=== PATIENT | female | born 1990 | race Hispanic/Latino ===

== ENCOUNTER 2017-06-13 08:54 | Emergency (ER) | payer BC, OTHER ==
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
== END 2017-06-13 10:31 | disposition home or self-care (01) ==
LOC: ERS 08:54
DX: S13.9XXA Sprain of joints and ligaments of unspecified parts of neck, initial encounter (principal); S33.5XXA Sprain of ligaments of lumbar spine, initial encounter; S23.3XXA Sprain of ligaments of thoracic spine, initial encounter; E03.9 Hypothyroidism, unspecified; J45.909 Unspecified asthma, uncomplicated; F41.9 Anxiety disorder, unspecified; F32.9 Major depressive disorder, single episode, unspecified; F17.210 Nicotine dependence, cigarettes, uncomplicated; Z79.899 Other long term (current) drug therapy; V86.99XA Unspecified occupant of other special all-terrain or other off-road motor vehicle injured in nontraffic accident, initial encounter
CPT/HCPCS: 72040; 72070; 72100; 99406

== ENCOUNTER 2018-12-01 11:57 | Emergency (ER) | payer BC, SELFPAY ==
[2018-12-01 13:02] LABS: #Basophils 0.1 thou/uL (0.0-0.2); #Eosinphils 0.7 thou/uL (0.0-0.7); #Monocytes 0.5 thou/uL (0.11-0.59); #Neutrophils 4.1 thou/uL (1.40-6.50); %Basophils 0.7 % (0.0-1.0); %Eosinophils 9.5 % (0.0-10.0); %Lymphocytes 27.2 % (21.0-51.0); %Monocytes 6.8 % (0.0-10.0); %Neutrophils 55.8 % (42.0-75.0); Hemoglobin 12.6 g/dL (12.0-16.0); Mean Corpuscular HGB CONC 31.9 g/dL (32.0-36.0); Mean Corpuscular Hemoglobin 30.5 pg (27.0-31.0); Mean Corpuscular Volume 95.5 fL (78.0-98.0); Mean Platelet Volume 7.4 fL (7.4-10.4); Platelet Count 260 thou/uL (130-400); RBC Distribution Width 12.5 % (11.5-14.5); Red Blood Cell (RBC) Count 4.13 mill/uL (4.20-5.40); White Blood Cell (WBC) Count 7.3 thou/uL (4.8-10.8)
[2018-12-01 13:11] LABS: BHCG - Serum Negative (NEGATIVE); Pregs Control Background? CLEAR/WHITE (CLR/WHITE); Pregs Control Bar Appear? YES (CONTROL BAR)
[2018-12-01 13:21] LABS: Acetaminophen Less than 6.0 mcg/mL (10.0-30.0); Alcohol Less than 10 mg/dL (Less than 10); Magnesium 2.3 mg/dL (1.6-2.6); Salicylate Less than 8.0 mg/dL (15.0-30.0)
[2018-12-01 13:27] LABS: ALT (SGPT) 16 U/L (8-55); AST (SGOT) 21 U/L (5-34); Albumin 3.9 g/dL (3.5-5.0); Alkaline Phosphatase 70 U/L (40-150); Anion Gap 9 mmol/L (10-20); BUN (Urea Nitrogen) 15 mg/dL (7.0-18.7); Bilirubin, Total 0.4 mg/dL (0.2-1.2); CK (CPK) 232 U/L (29-168); Calc. Creatinine Clearance 0 mL/min (70-130); Calcium 9.1 mg/dL (7.8-10.44); Carbon Dioxide 27 mmol/L (22-29); Chloride 110 mmol/L (98-107); Estimated GFR-MDRD Greater than 90; Globulin 2.9 g/dL (2.4-3.5); Glucose 78 mg/dL (70-105); Protein, Total 6.8 g/dL (6.0-8.3); Sodium 142 mmol/L (136-145)
[2018-12-01 13:29] LABS: Bilirubin Negative (Negative); Blood, Urine Negative (Negative); Clarity CLEAR (Clear); Glucose, Urine (Dipstick) Negative (Negative); Leukocyte Negative (Negative); Nitrite Negative (Negative); Protein, Urine (Dipstick) Negative (Neg-Trace); Specific Gravity, Urine 1.017 (1.002-1.036)
[2018-12-01 13:38] LABS: Amphetamine Not Detected (NotDetected); Barbiturates Screen Not Detected (NotDetected); Benzodiazepine Screen Detected (NotDetected); Cocaine Metabolite Screen Not Detected (NotDetected); Medtox Control Line Valid? VALID (VALID); Medtox Reader # READER 1; Methadone Not Detected (NotDetected); Methamphetamine Not Detected (NotDetected); Opiate Screen Detected (NotDetected); Oxycodone Screen Not Detected (NotDetected); Phencyclidine (PCP) Not Detected (NotDetected); THC/Cannabinoid Screen Not Detected (NotDetected); Tricyclic Screen Detected (NotDetected)
[2018-12-01] MEDS ORDERED: Nicotine 21 MG PATCH TOP SCH ×2 (13:45→22:45)
[2018-12-01] MEDS ORDERED: traZODone HCl 50 MG TAB ONE (22:47)
[2018-12-01] MEDS ORDERED: Acetaminophen 500 MG TAB ONE (23:05)
[2018-12-02] MEDS ORDERED: Ziprasidone 20 MG CAP ONE (03:45)
[2018-12-02] MEDS ORDERED: Levothyroxine Sodium 75 MCG TAB PO SCH (09:00)
[2018-12-02] MEDS ORDERED: Bacitracin Zinc 1 Packet ONE ×2 (11:39→15:37)
[2018-12-02] MEDS ORDERED: Nicotine 21 MG PATCH TOP SCH (15:15)
[2018-12-02] MEDS ORDERED: Ibuprofen 200 MG TAB ONE (16:55)
[2018-12-02] MEDS ORDERED: Diazepam 5 MG TAB ONE (16:55)
[2018-12-02] MEDS ORDERED: Meloxicam 15 MG TAB PO SCH (19:00)
[2018-12-02] MEDS ORDERED: Amitriptyline HCl 10 MG TAB PO SCH (19:00)
[2018-12-02] MEDS ORDERED: Acetaminophen 325 MG TAB ONE (19:35)
[2018-12-02] MEDS ORDERED: tiZANidine HCl 4 MG TAB PO SCH (21:00)
== END 2018-12-01 21:07 ==
LOC: ERS 11:57
DX: F32.9 Major depressive disorder, single episode, unspecified (principal); F19.10 Other psychoactive substance abuse, uncomplicated; E03.9 Hypothyroidism, unspecified; F41.9 Anxiety disorder, unspecified; J45.909 Unspecified asthma, uncomplicated; F17.210 Nicotine dependence, cigarettes, uncomplicated; Z79.899 Other long term (current) drug therapy
CPT/HCPCS: 80053; 80306; 80307; 81003; 82550; 83735; 84443; 84703; 85025; 93005; 96360

== ENCOUNTER 2019-02-13 00:38 | Emergency (ER) | payer SELFPAY ==
[2019-02-13 02:20] LABS: #Basophils 0.1 thou/uL (0.0-0.2); #Eosinphils 0.7 thou/uL (0.0-0.7); #Lymphocytes 2.2 thou/uL (1.20-3.40); #Monocytes 0.4 thou/uL (0.11-0.59); #Neutrophils 2.8 thou/uL (1.40-6.50); %Basophils 0.9 % (0.0-1.0); %Eosinophils 10.8 % (0.0-10.0); %Lymphocytes 35.7 % (21.0-51.0); %Monocytes 6.8 % (0.0-10.0); %Neutrophils 45.9 % (42.0-75.0); Mean Corpuscular HGB CONC 32.8 g/dL (32.0-36.0); Mean Corpuscular Hemoglobin 30.1 pg (27.0-31.0); Mean Corpuscular Volume 91.9 fL (78.0-98.0); Mean Platelet Volume 7.5 fL (7.4-10.4); Platelet Count 195 thou/uL (130-400); RBC Distribution Width 12.6 % (11.5-14.5); Red Blood Cell (RBC) Count 3.64 mill/uL (4.20-5.40); White Blood Cell (WBC) Count 6.2 thou/uL (4.8-10.8)
[2019-02-13 02:24] LABS: PTT 26.4 SEC (22.9-36.1); Prothrombin Time 13.7 SEC (12.0-14.7)
[2019-02-13 02:25] LABS: BHCG - Serum Negative (NEGATIVE); Pregs Control Background? CLEAR/WHITE (CLR/WHITE); Pregs Control Bar Appear? YES (CONTROL BAR)
[2019-02-13 02:44] LABS: ALT (SGPT) 40 U/L (8-55); AST (SGOT) 38 U/L (5-34); Albumin 3.5 g/dL (3.5-5.0); Alkaline Phosphatase 79 U/L (40-150); Anion Gap 11 mmol/L (10-20); BUN (Urea Nitrogen) 19 mg/dL (7.0-18.7); Bilirubin, Total 0.2 mg/dL (0.2-1.2); Calc. Creatinine Clearance 0 mL/min (70-130); Calcium 8.8 mg/dL (7.8-10.44); Carbon Dioxide 23 mmol/L (22-29); Chloride 109 mmol/L (98-107); Estimated GFR-MDRD Greater than 90; Glucose 88 mg/dL (70-105); Potassium 4.3 mmol/L (3.5-5.1); Protein, Total 6.5 g/dL (6.0-8.3); Sodium 139 mmol/L (136-145)
[2019-02-13 03:03] LABS: Bilirubin Negative (Negative); Blood, Urine Negative (Negative); Clarity Clear (Clear); Glucose, Urine (Dipstick) Normal (Negative); Leukocyte Negative Leu/uL (Negative); Nitrite Negative (Negative); Protein, Urine (Dipstick) 20 mg/dL (Neg-Trace)
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
[2019-02-13] MEDS ORDERED: ISOVUE-370 76%-LOCM 1 ML ONE (10:12)
== END 2019-02-13 03:19 | disposition home or self-care (01) ==
LOC: ERS 00:38
DX: S90.811A Abrasion, right foot, initial encounter (principal); S00.511A Abrasion of lip, initial encounter; E03.9 Hypothyroidism, unspecified; J45.909 Unspecified asthma, uncomplicated; F41.9 Anxiety disorder, unspecified; F31.9 Bipolar disorder, unspecified; F17.210 Nicotine dependence, cigarettes, uncomplicated; Z79.899 Other long term (current) drug therapy; V49.9XXA Car occupant (driver) (passenger) injured in unspecified traffic accident, initial encounter
CPT/HCPCS: 36415; 70450; 71260; 72125; 74177; 80053; 81003; 84703; 85025; 85610; 85730; Q9966

== ENCOUNTER 2019-02-18 13:32 | Inpatient (IN) | payer SELFPAY, OTHER ==
[2019-02-18 14:05] LABS: #Basophils 0.1 thou/uL (0.0-0.2); #Eosinphils 0.6 thou/uL (0.0-0.7); #Lymphocytes 2.2 thou/uL (1.20-3.40); #Monocytes 0.6 thou/uL (0.11-0.59); #Neutrophils 3.7 thou/uL (1.40-6.50); %Basophils 0.8 % (0.0-1.0); %Eosinophils 8.4 % (0.0-10.0); %Lymphocytes 30.5 % (21.0-51.0); %Neutrophils 51.3 % (42.0-75.0); Mean Corpuscular HGB CONC 32.7 g/dL (32.0-36.0); Mean Corpuscular Hemoglobin 30.3 pg (27.0-31.0); Mean Corpuscular Volume 92.7 fL (78.0-98.0); Mean Platelet Volume 6.9 fL (7.4-10.4); Platelet Count 208 thou/uL (130-400); RBC Distribution Width 12.5 % (11.5-14.5); Red Blood Cell (RBC) Count 3.64 mill/uL (4.20-5.40); White Blood Cell (WBC) Count 7.2 thou/uL (4.8-10.8)
--- NOTE | 2019-02-18 14:11 | RAD ---
Portable chest: HISTORY: Mental status change. Substance abuse COMPARISON: none FINDINGS: Lung arrieta are clear. Heart and mediastinum appear unremarkable. Vascularity is normal. Visualized osseous structures unremarkable. IMPRESSION: No acute finding
[2019-02-18 14:25] LABS: ALT (SGPT) 14 U/L (8-55); AST (SGOT) 21 U/L (5-34); Albumin 3.7 g/dL (3.5-5.0); Alcohol Less than 10 mg/dL (Less than 10); Alkaline Phosphatase 68 U/L (40-150); Anion Gap 11 mmol/L (10-20); BUN (Urea Nitrogen) 16 mg/dL (7.0-18.7); Bilirubin, Total 0.3 mg/dL (0.2-1.2); Calc. Creatinine Clearance 0 mL/min (70-130); Calcium 8.6 mg/dL (7.8-10.44); Carbon Dioxide 23 mmol/L (22-29); Chloride 109 mmol/L (98-107); Estimated GFR-MDRD Greater than 90; Globulin 2.9 g/dL (2.4-3.5); Glucose 78 mg/dL (70-105); Potassium 3.9 mmol/L (3.5-5.1); Protein, Total 6.6 g/dL (6.0-8.3); Salicylate Less than 8.0 mg/dL (15.0-30.0); Sodium 139 mmol/L (136-145)
[2019-02-18 14:40] LABS: Bacteria/HPF None Seen HPF (None Seen); Bilirubin 1+ (Negative); Blood, Urine Negative (Negative); Clarity Clear (Clear); Glucose, Urine (Dipstick) Normal (Negative); Leukocyte 250 Leu/uL (Negative); Nitrite Negative (Negative); Protein, Urine (Dipstick) 100 mg/dL (Neg-Trace); Squamous Epithelial 0-3 HPF (0-3); Urobilinogen 6 mg/dL (Less than 2)
[2019-02-18 14:49] LABS: Amphetamine Not Detected (NotDetected); Barbiturates Screen Detected (NotDetected); Benzodiazepine Screen Detected (NotDetected); Cocaine Metabolite Screen Not Detected (NotDetected); Medtox Control Line Valid? VALID (VALID); Medtox Reader # READER 4; Methadone Not Detected (NotDetected); Methamphetamine Not Detected (NotDetected); Opiate Screen Detected (NotDetected); Oxycodone Screen Detected (NotDetected); Phencyclidine (PCP) Not Detected (NotDetected); THC/Cannabinoid Screen Not Detected (NotDetected); Tricyclic Screen Detected (NotDetected)
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
[2019-02-18 16:55] LABS: Pregnancy Test - Urine (BHCG) Negative (Negative); Pregu Control Background? CLEAR/WHITE (CLR/WHITE); Pregu Control Bar Appear? YES (CONTROL BAR); Specific Gravity 1.049 (1.002-1.036)
[2019-02-18] MEDS ORDERED: Ondansetron PF 4 MG/2 ML Vial IVP PRN (19:40)
[2019-02-18] MEDS ORDERED: Naloxone HCl 0.4 mg/ml Vial IV PRN (19:40)
[2019-02-18] MEDS ORDERED: Ondansetron ODT 4 MG TAB SL PRN (19:40)
[2019-02-18] MEDS ORDERED: Sodium Chloride 0.9% 1,000 ML IV SCH (19:40)
[2019-02-18] MEDS ORDERED: traZODone HCl 50 MG TAB PO PRN (19:59)
[2019-02-18] MEDS ORDERED: Nicotine 14 MG PATCH TD SCH (21:00)
[2019-02-18 21:56] VITALS: BMI 39.4
[2019-02-18] MEDS ORDERED: Nicotine 21 MG PATCH TD SCH (23:59)
[2019-02-19] MEDS ORDERED: Acetaminophen 325 MG TAB PO PRN (05:04)
[2019-02-19 05:41] LABS: #Basophils 0.1 thou/uL (0.0-0.2); #Eosinphils 0.6 thou/uL (0.0-0.7); #Lymphocytes 2.5 thou/uL (1.20-3.40); #Monocytes 0.4 thou/uL (0.11-0.59); %Basophils 1.3 % (0.0-1.0); %Eosinophils 9.8 % (0.0-10.0); %Lymphocytes 37.2 % (21.0-51.0); %Monocytes 6.3 % (0.0-10.0); %Neutrophils 45.4 % (42.0-75.0); Hemoglobin 11.3 g/dL (12.0-16.0); Mean Corpuscular HGB CONC 32.8 g/dL (32.0-36.0); Mean Corpuscular Volume 94.4 fL (78.0-98.0); Mean Platelet Volume 7.3 fL (7.4-10.4); Platelet Count 227 thou/uL (130-400); RBC Distribution Width 12.7 % (11.5-14.5); Red Blood Cell (RBC) Count 3.63 mill/uL (4.20-5.40); White Blood Cell (WBC) Count 6.6 thou/uL (4.8-10.8)
[2019-02-19 06:06] LABS: ALT (SGPT) 13 U/L (8-55); AST (SGOT) 19 U/L (5-34); Albumin 3.4 g/dL (3.5-5.0); Alkaline Phosphatase 63 U/L (40-150); Anion Gap 10 mmol/L (10-20); BUN (Urea Nitrogen) 14 mg/dL (7.0-18.7); Bilirubin, Total 0.3 mg/dL (0.2-1.2); Calc. Creatinine Clearance 186 mL/min (70-130); Calcium 8.6 mg/dL (7.8-10.44); Carbon Dioxide 23 mmol/L (22-29); Chloride 110 mmol/L (98-107); Estimated GFR-MDRD Greater than 90; Globulin 2.9 g/dL (2.4-3.5); Glucose 97 mg/dL (70-105); Potassium 3.9 mmol/L (3.5-5.1); Protein, Total 6.3 g/dL (6.0-8.3); Sodium 139 mmol/L (136-145)
[2019-02-19] MEDS ORDERED: Naloxone HCl 0.4 mg/ml Vial IV PRN (06:38)
--- NOTE | 2019-02-19 06:40 | PDOC.FM ---
- Subjective Subjective: pt resting in bed, not amenable to questioning. tolerating PO. requesting benzos and norco. threatening to leave ama. - Objective Vital Signs & Weight: Vital Signs (12 hours) Temp Pulse Ox 02/19/19 03:19 98.1 F 02/19/19 00:56 98 02/18/19 19:35 99.1 F Weight Weight 97.778 kg Most Recent Monitor Data Heart Rate from ECG 86 NIBP 102/57 NIBP BP-Mean 72 Respiration from ECG 29 SpO2 97 I&O: 02/17/19 02/18/19 02/19/19 06:59 06:59 06:59 Intake Total 610 Balance 610 Result Diagrams: 02/19/19 05:19 02/19/19 05:19 Phys Exam - Physical Examination Constitutional: NAD HEENT: moist MMs Neck: no JVD Respiratory: clear to auscultation bilateral Cardiovascular: RRR, no significant murmur Gastrointestinal: no distention Musculoskeletal: pulses present Neurological: moves all 4 limbs Psychiatric: normal affect Skin: no rash Dx/Plan (1) Acute and chronic respiratory failure with hypoxia Code(s): J96.21 - ACUTE AND CHRONIC RESPIRATORY FAILURE WITH HYPOXIA Status: Acute (2) Asthma Code(s): J45.909 - UNSPECIFIED ASTHMA, UNCOMPLICATED Status: Acute Qualifiers: Asthma severity: mild (3) Drug overdose, multiple drugs Code(s): T50.901A - POISONING BY UNSP DRUG/MEDS/BIOL SUBST, ACCIDENTAL, INIT Status: Acute Qualifiers: Injury intent: undetermined intent (4) Hypothyroidism Code(s): E03.9 - HYPOTHYROIDISM, UNSPECIFIED Status: Acute (5) Suicidal behavior Code(s): R46.89 - OTHER SYMPTOMS AND SIGNS INVOLVING APPEARANCE AND BEHAVIOR Status: Acute (6) Tobacco abuse Code(s): Z72.0 - TOBACCO USE Status: Acute - Plan Plan: Multi-drug Overdose -UDS positive for: oxycodone, opiates, barbituates, TCA, and benzodiazepine -Poison control consulted: agreed with current workup; recommended 8-12 hr observation or until pt symptoms resolve -Questionable suicidal intent - pt denies this although becomes tearful when questioned about it -EKG with QRS < 100 -Sitter for pt w/ questionable SI, [facility] consulted -Repeat narcan if overdose sx worsen Acute hypoxic respiratory failure - resolved - Noted upon EMS arrival to pt's home -Improved following administration of narcan Hypothyroid -Continue home Levothyroxine 75mcg Asthma -Continue home inhalers Tobacco abuse -Daily smoker -Educate on cessation -Nicotine patch ordered Condition: Stable VTE: SCD Code Status: Full Dispo: pending [facility] eval Addendum - Attending - Attending Attestation Date/Time: 02/20/19 6703 I personally evaluated the patient and discussed the management with Dr. Hughes on 02/19/2019 I agree with the History, Examination, Assessment and Plan documented above with any addition or exceptions noted below - Patient requesting pain meds ; wants to go home. Afebrile VSS. A/P: 1) Multi-drug overdose- medically stable; plan for [facility] consult. Does not appear to be suicide attempt. Plan to d/c home of cleared by [facility]. Encouraged to pursue rehab
[2019-02-19] MEDS ORDERED: Ketorolac Tromethamine 30 MG/ML VIAL IVP PRN (09:17)
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
[2019-02-19 15:23] VITALS: TEMP 97.7
[2019-02-19] MEDS ORDERED: Nicotine 21 MG PATCH TD SCH (21:00)
--- NOTE | 2019-02-20 09:02 | DIS ---
DATE OF ADMISSION: 02/18/2019 DATE OF DISCHARGE: 02/19/2019 ADMITTING ATTENDING: Dr. Aung Perez. DISCHARGE ATTENDING: Dr. Emmy Duncan. RESIDENT: Tyler Hughes DO. CONSULTS: [facility]. PRIMARY DIAGNOSIS: Drug overdose. SECONDARY DIAGNOSES: 1. Chronic pain syndrome. 2. Hypothyroidism. 3. Acute hypoxic respiratory failure. 4. Asthma. 5. Tobacco abuse. DISCHARGE MEDICATIONS: 1. Sertraline 100 mg nightly. 2. Amitriptyline 25 mg p.o. daily. 3. Risperidone 2 mg p.o. daily. 4. Levothyroxine 75 mcg p.o. daily. DISCONTINUED MEDICATIONS: 1. Alprazolam 2 mg p.o. b.i.d. 2. Tizanidine 8 mg p.o. b.i.d. 3. Omeprazole 10 mg p.o. daily. 4. Hydrocodone one tablet p.o. q.6. HISTORY OF PRESENT ILLNESS/HOSPITAL COURSE: Ms. Quach is a 28-year-old female who had initially presented to [facility] ER with drug overdose. At that time , we were unable to obtain accurate history from patient. At that time, we think she had taken some pills and she was trying to get home. At that time she denied any suicidal ideation. The patient's UDS was positive for benzos, tricyclics, and opioids. She was given narcan in the emergency department and Poison Control was contacted from the emergency department and it was determined that she would be observed in IMCU for an additional 8 to 12 hours to confirm respiratory support. Upon evaluation by the primary team in the ER, she was noted to be stable on room air. Rest of her vital signs were stable and remained stable throughout her hospital stay. The patient complained of pain and requested pain medicine throughout her hospital stay. specifically pain medications in the opioid form and in a benzodiazapine form for anxiety medications were denied to her at this time. [facility] was consulted to evaluate the patient for suicidal ideation of which they found that she was not at risk for, deemed stable for discharge home with followup outpatient [facility], Dr. Escobar in town here. DISCHARGE INSTRUCTIONS: 1. Location: Home. 2. Diet: Regular. 3. Activity: As tolerated. 4. Follow up with PCP and Dr. Escobar for further evaluation and treatment of prescription drug addiction. Job ID: [id number] MTDD
== END 2019-02-19 17:32 | disposition home or self-care (01) | DRG 917 ==
LOC: ERS 13:32 → ERHOLD 15:24 → EEVIPCON 15:24 → IMCU/EMU 19:40
PROVIDERS: ADMIT Emergency Medicine; ATTEND Emergency Medicine
DX: T40.2X1A Poisoning by other opioids, accidental (unintentional), initial encounter (principal); J96.21 Acute and chronic respiratory failure with hypoxia; T42.4X1A Poisoning by benzodiazepines, accidental (unintentional), initial encounter; J45.909 Unspecified asthma, uncomplicated; E03.9 Hypothyroidism, unspecified; F17.200 Nicotine dependence, unspecified, uncomplicated; F41.9 Anxiety disorder, unspecified; Z79.899 Other long term (current) drug therapy
CPT/HCPCS: 36415; 51701; 71045; 80053; 80306; 80307; 81003; 81015; 81025; 84443; 84484; 85025; 93005; A4353; J1885

== ENCOUNTER 2020-05-07 14:13 | Observation (INO) | payer OTHER, SELFPAY ==
[2020-05-07 15:07] LABS: #Basophils 0.1 thou/uL (0.0-0.2); #Eosinphils 0.6 thou/uL (0.0-0.7); #Lymphocytes 1.2 thou/uL (1.20-3.40); #Monocytes 0.4 thou/uL (0.11-0.59); #Neutrophils 3.6 thou/uL (1.40-6.50); %Basophils 1.2 % (0.0-1.0); %Eosinophils 10.1 % (0.0-10.0); %Lymphocytes 20.2 % (21.0-51.0); %Monocytes 6.3 % (0.0-10.0); %Neutrophils 62.2 % (42.0-75.0); Mean Corpuscular HGB CONC 31.1 g/dL (32.0-36.0); Mean Corpuscular Hemoglobin 24.1 pg (27.0-31.0); Mean Corpuscular Volume 77.4 fL (78.0-98.0); Mean Platelet Volume 7.5 fL (7.4-10.4); Platelet Count 401 thou/uL (130-400); RBC Distribution Width 17.3 % (11.5-14.5); Red Blood Cell (RBC) Count 3.31 mill/uL (4.20-5.40); White Blood Cell (WBC) Count 5.8 thou/uL (4.8-10.8)
[2020-05-07 15:10] LABS: BHCG - Serum Negative (NEGATIVE); Pregs Control Bar Appear? YES (CONTROL BAR)
[2020-05-07 15:11] LABS: Pregs Control Background? CLEAR/WHITE (CLR/WHITE)
[2020-05-07] MEDS ORDERED: Iopamidol-370 76% 500 ML 1 ML ONE (15:11)
[2020-05-07 15:34] LABS: ALT (SGPT) 17 U/L (8-55); AST (SGOT) 18 U/L (5-34); Albumin 3.7 g/dL (3.5-5.0); Alkaline Phosphatase 51 U/L (40-110); Anion Gap 10 mmol/L (10-20); BUN (Urea Nitrogen) 15 mg/dL (7.0-18.7); Bilirubin, Total 0.2 mg/dL (0.2-1.2); Calc. Creatinine Clearance 0 mL/min (70-130); Calcium 8.2 mg/dL (7.8-10.44); Carbon Dioxide 24 mmol/L (22-29); Chloride 109 mmol/L (98-107); Estimated GFR-MDRD Greater than 90; Globulin 2.6 g/dL (2.4-3.5); Glucose 112 mg/dL (70-105); Lipase 53 U/L (8-78); Potassium 4.3 mmol/L (3.5-5.1); Protein, Total 6.3 g/dL (6.0-8.3); Sodium 139 mmol/L (136-145)
[2020-05-07 15:56] LABS: Bacteria/HPF 3+ HPF (None Seen); Bilirubin Negative (Negative); Blood, Urine Negative (Negative); Clarity Turbid (Clear); Glucose, Urine (Dipstick) Normal (Negative); Ketone, Urine Trace mg/dL (Negative); Leukocyte 25 Leu/uL (Negative); Nitrite 2+ (Negative); Protein, Urine (Dipstick) 50 mg/dL (Neg-Trace); RBC/HPF None Seen HPF (0-3); Specific Gravity, Urine 1.027 (1.002-1.036); Squamous Epithelial None Seen HPF (0-3); Urobilinogen Normal mg/dL (Less than 2)
[2020-05-07] MEDS ORDERED: Ondansetron PF 4 MG/2 ML Vial ONE (17:16)
[2020-05-07] MEDS ORDERED: Morphine 4 MG/ML VIAL ONE (17:16)
--- NOTE | 2020-05-07 17:24 | CT ---
CT OF THE ABDOMEN AND PELVIS WITH IV CONTRAST INDICATION: 29-year-old female with abdominal pain COMPARISON: CT the chest, abdomen and pelvis dated February 13, 2019 FINDINGS: ABDOMEN: Lung bases: Clear Liver: Mild fatty liver Gallbladder: Normal appearing. Pancreas: Normal. Adrenal glands: Normal. Spleen: Normal. Kidneys and ureters: Normal. No hydronephrosis. Vasculature: Normal. Lymph nodes:No lymphadenopathy. Free fluid in abdomen:No free fluid is evident. PELVIS: Small and large bowel: The unopacified large and small bowel are largely decompressed. No definite ac grayling abnormality is evident. There is postsurgical change of a prior gastroplasty. Appendix:Normal Bladder: Normal. Rectal and perirectal soft tissues:Normal. Reproductive structures: Normal. Free fluid in pelvis: No free fluid is evident. Lymphadenopathy pelvis: No lymphadenopathy is evident. Osseous structures: No acute osseous abnormality. No destructive osteolytic or osteoblastic lesion i s identified. There is scattered degenerative and osteoarthritic changes. Soft tissues:Normal. IMPRESSION: 1. No acute abnormality.
[2020-05-07 17:35] LABS: Pregnancy Test - Urine (BHCG) Negative (Negative); Pregu Control Background? CLEAR/WHITE (CLR/WHITE); Pregu Control Bar Appear? YES (CONTROL BAR); Specific Gravity 1.025 (1.002-1.036)
[2020-05-07] MEDS ORDERED: cefTRIAXone\\ROCEPHIN 1 GM VIAL ONE (18:59)
[2020-05-07] MEDS ORDERED: Calcium Carbonate 500 MG ChewTAB PO PRN (19:17)
[2020-05-07] MEDS ORDERED: Ondansetron ODT 4 MG TAB PO PRN (19:17)
[2020-05-07] MEDS ORDERED: Ondansetron PF 4 MG/2 ML Vial IVP PRN (19:17)
[2020-05-07] MEDS ORDERED: Acetaminophen 325 MG TAB PO PRN (19:17)
[2020-05-07] MEDS ORDERED: Bisacodyl 10 MG SUPP PR PRN (19:17)
[2020-05-07] MEDS ORDERED: Zolpidem Tartrate 5 MG TAB PO PRN (19:17)
[2020-05-07] MEDS ORDERED: Senokot S 8.6-50 MG TAB PO PRN (19:17)
[2020-05-07] MEDS ORDERED: IRON SUCROSE COMPLEX 100 MG/5 ML SLOW IVP SCH (19:17)
[2020-05-07] MEDS ORDERED: Loperamide HCl 2 MG CAP PO PRN (19:17)
[2020-05-07] MEDS ORDERED: Guaifenesin DM 100-10/5 ML UDCUP PO PRN (19:17)
[2020-05-07] MEDS ORDERED: Iron, Sodium Ferric Gluconate 125 MG in Sodium Chloride 0.9% 100 ML IVPB SCH (19:30)
[2020-05-07 20:01] LABS: Iron 14 ug/dL (50-170); Iron Binding Capacity, Total 505 mcg/dL (265-497)
--- NOTE | 2020-05-07 20:08 | HP ---
PRIMARY CARE PHYSICIAN: [facility]. REASON FOR ADMISSION: Generalized weakness, nausea, vomiting, diarrhea, and UTI. HISTORY OF PRESENT ILLNESS: A 29-year-old female who came to emergency room for nausea, vomiting, diarrhea, and abdominal pain, this is going on for last 4 days. The patient also had very foul smelling urine. She does not have any dysuria or hematuria. She does not have any vomiting of blood. She does not have any melena or hematochezia. States she has liquidy diarrhea without any pus or blood. She was feeling chills, but no fever. She was feeling dizzy and lightheaded. She denies any menorrhagia. She denies any lower abdominal pain. In the emergency room, the patient was found with hemoglobin 8.0, which is microcytic. Her urinalysis consistent with UTI. The patient has received Rocephin in the emergency room, and the patient also given IV fluid and Zofran and morphine. She denies any COVID-19 exposure. She does not have any loss of taste or smell sensation. PAST MEDICAL HISTORY: Chronic anemia, chronic low back pain, and obesity. PAST PSYCHIATRIC HISTORY: Anxiety, depression, and bipolar disorder. PAST SURGICAL HISTORY: Gastric sleeve, x3. SOCIAL HISTORY: The patient lives at home. She smokes about half pack per day. No alcohol abuse. She denies any other illicit drug abuse. FAMILY HISTORY: No strong family history of premature coronary artery disease, stroke, or cancer. REVIEW OF SYSTEMS: All review of systems reviewed and negative except as mentioned in HPI. PHYSICAL EXAMINATION: VITAL SIGNS: Currently, blood pressure 122/69, pulse 72, respiratory rate 17, temperature 98.8, and saturation 100% on room air. Weight 81 kg. GENERAL: The patient is currently alert, awake, no acute distress. HEENT: Head; normocephalic, atraumatic. NECK: Supple. No JVD. No meningeal signs of irritation. LUNGS: Clear to auscultation without any rhonchi or rales. CARDIAC: S1 and S2 regular, no murmur. No gallop. No rub. ABDOMEN: Soft, bowel sounds present, nontender, nondistended. No organomegaly. No mass. EXTREMITIES: No edema. Good distal pulsation. SKIN: No skin rash. HEMATOLOGICAL SYSTEM: No lymphadenopathy. NEUROLOGIC: Nonfocal examination. SIGNIFICANT LABORATORY DATA: CBC; WBC 5.8, hemoglobin 8.0, platelets 401, MCV 77. BMP; sodium 139, potassium 4.3, chloride 109, BUN 15, creatinine 0.72, calcium 8.2. LFT normal. test negative. TSH 0.96. Urinalysis consistent with UTI. CT abdomen and pelvis completely normal. ASSESSMENT AND PLAN: 1. Iron deficiency anemia, symptomatic. The patient's hemoglobin is 8.0. We will check iron study and stool for guaiac is already negative. We will give her IV iron today and tomorrow. 2. Urinary tract infection. We will give her Rocephin 1 g p.o. 24 hour and send her on Cipro p.o. or Macrobid depending upon culture results. 3. Anxiety and depression. Her home medication will be reconsulted. 4. Gastroenteritis, viral. We will rule out COVID-19. We will continue with overnight IV fluids. 5. Deep venous thrombosis prophylaxis, SCD boots. 6. Gastrointestinal prophylaxis. Protonix 40 mg p.o. daily. CODE STATUS: The patient is full code. DISPOSITION PLAN: Based on clinical course. Plan of care discussed with the patient in detail. Job ID: [id number]
[2020-05-07 22:03] VITALS: BMI 34.2
[2020-05-07] MEDS: cefTRIAXone\\ROCEPHIN 1 GM in Sodium Chloride 0.9% 100 ML IVPB SCH (22:05)
[2020-05-07] MEDS: HYDROcodone/Acetaminophen 5/325 mg Tablet PO PRN (22:13)
[2020-05-07] MEDS: Sodium Chloride 0.9% 1,000 ML IV SCH (22:13)
[2020-05-07] MEDS: Famotidine 20 MG TAB PO SCH (22:13)
[2020-05-07] MEDS ORDERED: risperiDONE 1 MG TAB PO SCH (22:15)
[2020-05-07] MEDS ORDERED: Amitriptyline HCl 25 MG TAB PO SCH (22:15)
[2020-05-08] MEDS: Levothyroxine Sodium 75 MCG TAB PO SCH (05:20)
[2020-05-08 06:05] LABS: #Basophils 0.1 thou/uL (0.0-0.2); #Eosinphils 0.6 thou/uL (0.0-0.7); #Lymphocytes 1.1 thou/uL (1.20-3.40); #Monocytes 0.2 thou/uL (0.11-0.59); #Neutrophils 3.6 thou/uL (1.40-6.50); %Basophils 1.1 % (0.0-1.0); %Eosinophils 10.7 % (0.0-10.0); %Lymphocytes 19.2 % (21.0-51.0); %Monocytes 3.3 % (0.0-10.0); %Neutrophils 65.7 % (42.0-75.0); Hemoglobin 8.1 g/dL (12.0-16.0); Mean Corpuscular HGB CONC 31.2 g/dL (32.0-36.0); Mean Corpuscular Hemoglobin 24.5 pg (27.0-31.0); Mean Corpuscular Volume 78.6 fL (78.0-98.0); Mean Platelet Volume 7.3 fL (7.4-10.4); Platelet Count 364 thou/uL (130-400); White Blood Cell (WBC) Count 5.5 thou/uL (4.8-10.8)
[2020-05-08 06:27] LABS: Anion Gap 9 mmol/L (10-20); BUN (Urea Nitrogen) 13 mg/dL (7.0-18.7); Calc. Creatinine Clearance 187 mL/min (70-130); Calcium 7.7 mg/dL (7.8-10.44); Carbon Dioxide 23 mmol/L (22-29); Chloride 115 mmol/L (98-107); Estimated GFR-MDRD Greater than 90; Glucose 78 mg/dL (70-105); Potassium 3.6 mmol/L (3.5-5.1); Sodium 143 mmol/L (136-145)
[2020-05-08] MEDS: HYDROcodone/Acetaminophen 5/325 mg Tablet PO PRN ×2 (08:00→17:28)
[2020-05-08] MEDS ORDERED: Iron, Sodium Ferric Gluconate 250 MG in Sodium Chloride 0.9% 100 ML IVPB SCH (08:00)
[2020-05-08] MEDS: Famotidine 20 MG TAB PO SCH (08:01)
[2020-05-08] MEDS ORDERED: Amitriptyline HCl 25 MG TAB PO SCH ×2 (09:00→21:00)
[2020-05-08] MEDS ORDERED: risperiDONE 1 MG TAB PO SCH ×2 (09:00→21:00)
[2020-05-08 11:02] LABS: SARS-CoV-2 MS2 Positive; SARS-CoV-2 N Gene Negative; SARS-CoV-2 S Gene Negative; SARS-CoV-2 by NAA Not Detected (NotDetected); SARS-CoV-2 orf1ab Negative
[2020-05-08] MEDS ORDERED: diphenhydrAMINE 50 MG/ML VIAL ONE (11:37)
[2020-05-08] MEDS ORDERED: diphenhydrAMINE 50 MG/ML VIAL IVP SCH (11:45)
[2020-05-08] MEDS ORDERED: methylPREDNISolone Sod Succ 40 MG VIAL IVP SCH (11:45)
[2020-05-08] MEDS ORDERED: Morphine 2 MG/ML VIAL SLOW IVP SCH (12:00)
[2020-05-08] MEDS: Sodium Chloride 0.9% 1,000 ML IV SCH (12:21)
--- NOTE | 2020-05-08 12:55 | PDOC.HOSPP ---
- Subjective Encounter Date: 05/08/20 Encounter Time: 08:15 Subjective: Patient seen and examined. No new complaints. No overnight events pt developed allergic reaction to venofer, had nausea, vomiting and abdominal pain and hives - Objective Vital Signs & Weight: Vital Signs (12 hours) Temp Pulse Resp BP BP Pulse Ox 05/08/20 12:11 97.4 F L 99 22 H 122/78 96 05/08/20 07:34 98.2 F 101 H 20 137/88 98 05/08/20 01:00 98.2 F 101 H 18 125/78 100 Weight Weight 187 lb I&O: 05/07/20 05/08/20 05/09/20 06:59 06:59 06:59 Intake Total 100 Balance 100 Result Diagrams: 05/08/20 05:26 05/08/20 05:26 Hospitalist ROS - Review of Systems ENT: denies: ear pain, ear discharge, nose pain, nose discharge, nose congestion, mouth pain, mouth swelling, throat pain, throat swelling, other Respiratory: denies: cough, dry, shortness of breath, hemoptysis, SOB with excertion, pleuritic pain, sputum, wheezing, other Cardiovascular: denies: chest pain, palpitations, orthopnea, paroxysmal noc. dyspnea, edema, light headedness, other Gastrointestinal: denies: nausea, vomiting, abdominal pain, diarrhea, constipation, melena, hematochezia, other Genitourinary: denies: dysuria, frequency, incontinence, hematuria, retention, other Musculoskeletal: denies: neck pain, shoulder pain, arm pain, back pain, hand p ain, leg pain, foot pain, other - Medication Medications: Active Medications Generic Name Dose Route Start Last Admin Trade Name Freq PRN Reason Stop Dose Admin Hydrocodone Bitart/Acetaminophen 1 tab 05/07/20 19:17 05/08/20 08:00 Hydrocodone/Acetaminophen 5/325 Mg Tablet PO 1 tab Q4H PRN Administration Moderate Pain (4-6) Diphenhydramine HCl 25 mg 05/08/20 11:45 05/08/20 11:47 Diphenhydramine 50 Mg/Ml Vial IVP 05/08/20 14:00 Not Given NOW MARGUERITE Ceftriaxone Sodium 1 gm/ 100 mls @ 200 mls/hr 05/07/20 20:00 05/07/20 22:05 Sodium Chloride IVPB Not Given Q24HR [facility] Sodium Chloride 1,000 mls @ 75 mls/hr 05/07/20 19:17 05/08/20 12:21 Normal Saline 0.9% IV 1,000 mls .[id number] MARGUERITE Administration Levothyroxine Sodium 75 mcg 05/08/20 06:00 05/08/20 05:20 Levothyroxine Sodium 75 Mcg Tab PO 75 mcg 0600 MARGUERITE Administration Methylprednisolone Sodium Succinate 40 mg 05/08/20 11:45 05/08/20 11:44 Methylprednisolone Sod Succ 40 Mg Vial IVP 05/08/20 14:00 40 mg NOW MARGUERITE Administration Morphine Sulfate 2 mg 05/08/20 12:00 05/08/20 12:01 Morphine 2 Mg/Ml Vial SLOW IVP 05/08/20 14:00 2 mg NOW MARGUERITE Administration Ondansetron HCl 4 mg 05/07/20 19:17 05/08/20 11:44 Ondansetron Pf 4 Mg/2 Ml Vial IVP 4 mg Q6H PRN Administration Nausea/Vomiting Sertraline HCl 100 mg 05/07/20 21:00 05/07/20 22:49 Sertraline Hcl 100 Mg Tab PO 100 mg HS MARGUERITE Administration - Exam General Appearance: NAD, awake alert Eye: PERRL, anicteric sclera ENT: normocephalic atraumatic, no oropharyngeal lesions Neck: supple, symmetric, no JVD, no thyromegaly Heart: RRR, no murmur, no gallops, no rubs, normal peripheral pulses Respiratory: CTAB, no wheezes, no rales, no ronchi, normal chest expansion, no tachypnea, normal percussion, rales, rhonchi, tachypneic, wheezes Gastrointestinal: soft, non-tender, non-distended, normal bowel sounds, no p alpable masses Extremities: no cyanosis, no clubbing Skin: normal turgor, no lesions Neurological: no focal deficits Musculoskeletal: normal tone, normal strength, no muscle wasting Psychiatric: normal affect, normal behavior, A&O x 3 Hosp A/P (1) Allergic reaction caused by a drug Code(s): T78.40XA - ALLERGY, UNSPECIFIED, INITIAL ENCOUNTER Status: Acute (2) Iron deficiency anemia Code(s): D50.9 - IRON DEFICIENCY ANEMIA, UNSPECIFIED Status: Acute Qualifiers: Iron deficiency anemia type: inadequate dietary iron intake Qualified Code(s): D50.8 - Other iron deficiency anemias (3) Obesity (BMI 30-39.9) Code(s): E66.9 - OBESITY, UNSPECIFIED Status: Chronic (4) Asthma Code(s): J45.909 - UNSPECIFIED ASTHMA, UNCOMPLICATED Status: Chronic Qualifiers: Asthma severity: mild (5) Hypothyroidism Code(s): E03.9 - HYPOTHYROIDISM, UNSPECIFIED Status: Chronic (6) Tobacco abuse Code(s): Z72.0 - TOBACCO USE Status: Chronic - Plan old records reviewed/req planned for discharge but she developed allergic reaction to venofer, given solumedrol, benadryl, zofran and morphin, will monitor based on how she feels will decide if stable for dc today or not
[2020-05-08] MEDS: methylPREDNISolone Sod Succ 40 MG VIAL IVP SCH (17:29)
[2020-05-08] MEDS: Famotidine/PF 20 mg/2ml Vial SLOW IVP SCH (20:24)
[2020-05-08] MEDS: cefTRIAXone\\ROCEPHIN 1 GM in Sodium Chloride 0.9% 100 ML IVPB SCH (20:25)
[2020-05-08] MEDS ORDERED: ALPRAZolam 1 MG TAB PO SCH (21:00)
[2020-05-09] MEDS: Sodium Chloride 0.9% 1,000 ML IV SCH (00:55)
[2020-05-09] MEDS: methylPREDNISolone Sod Succ 40 MG VIAL IVP SCH ×3 (00:55→12:09)
[2020-05-09] MEDS: Levothyroxine Sodium 75 MCG TAB PO SCH (05:03)
[2020-05-09] MEDS: Famotidine/PF 20 mg/2ml Vial SLOW IVP SCH (08:12)
[2020-05-09] MEDS: HYDROcodone/Acetaminophen 5/325 mg Tablet PO PRN ×2 (08:20→12:08)
--- NOTE | 2020-05-09 10:18 | PDOC.HOSPP ---
- Subjective Encounter Date: 05/09/20 Encounter Time: 07:50 Subjective: Patient seen and examined. No new complaints. No overnight events - Objective Vital Signs & Weight: Vital Signs (12 hours) Temp Pulse Resp BP BP Pulse Ox 05/09/20 08:00 98.3 F 107 H 20 132/79 99 05/09/20 07:00 98.3 F 107 H 20 132/79 99 05/09/20 03:00 99.2 F 92 18 127/83 97 05/08/20 23:00 97.8 F 95 18 129/83 96 Weight Weight 187 lb I&O: 05/08/20 05/09/20 05/10/20 06:59 06:59 06:59 Intake Total 100 102 Balance 100 102 Result Diagrams: 05/08/20 05:26 05/08/20 05:26 Hospitalist ROS - Review of Systems Respiratory: denies: cough, dry, shortness of breath, hemoptysis, SOB with excertion, pleuritic pain, sputum, wheezing, other Cardiovascular: denies: chest pain, palpitations, orthopnea, paroxysmal noc. dyspnea, edema, light headedness, other Gastrointestinal: denies: nausea, vomiting, abdominal pain, diarrhea, constipation, melena, hematochezia, other Genitourinary: denies: dysuria, frequency, incontinence, hematuria, retention, other Musculoskeletal: denies: neck pain, shoulder pain, arm pain, back pain, hand pain, leg pain, foot pain, other - Medication Medications: Active Medications Generic Name Dose Route Start Last Admin Trade Name Freq PRN Reason Stop Dose Admin Hydrocodone Bitart/Acetaminophen 1 tab 05/07/20 19:17 05/09/20 08:20 Hydrocodone/Acetaminophen 5/325 Mg Tablet PO 1 tab Q4H PRN Administration Moderate Pain (4-6) Alprazolam 2 mg 05/08/20 21:00 05/08/20 20:24 Alprazolam 1 Mg Tab PO 2 mg HS MARGUERITE Administration Amitriptyline HCl 25 mg 05/08/20 21:00 05/08/20 20:24 Amitriptyline Hcl 25 Mg Tab PO 25 mg HS MARGUERITE Administration Calcium Carbonate 1,000 mg 05/07/20 19:17 05/08/20 18:31 Calcium Carbonate 500 Mg Chewtab PO 1,000 mg Q4H PRN Administration Heartburn or Indigestion Famotidine 20 mg 05/08/20 21:00 05/09/20 08:12 Famotidine/Pf 20 Mg/2ml Vial SLOW IVP 20 mg BID MARGUERITE Administration Ceftriaxone Sodium 1 gm/ 100 mls @ 200 mls/hr 05/07/20 20:00 05/08/20 20:25 Sodium Chloride IVPB 100 mls Q24HR MARGUERITE Administration Sodium Chloride 1,000 mls @ 75 mls/hr 05/07/20 19:17 05/09/20 00:55 Normal Saline 0.9% IV 1,000 mls .[id number] MARGUERITE Administration Levothyroxine Sodium 75 mcg 05/08/20 06:00 05/09/20 05:03 Levothyroxine Sodium 75 Mcg Tab PO 75 mcg 0600 MARGUERITE Administration Methylprednisolone Sodium Succinate 40 mg 05/08/20 18:00 05/09/20 05:03 Methylprednisolone Sod Succ 40 Mg Vial IVP 40 mg Q6HR MARGUERITE Administration Ondansetron HCl 4 mg 05/07/20 19:17 05/08/20 11:44 Ondansetron Pf 4 Mg/2 Ml Vial IVP 4 mg Q6H PRN Administration Nausea/Vomiting Risperidone 2 mg 05/08/20 21:00 05/08/20 20:25 Risperidone 1 Mg Tab PO 2 mg HS MARGUERITE Administration Sertraline HCl 100 mg 05/07/20 21:00 05/08/20 20:24 Sertraline Hcl 100 Mg Tab PO 100 mg HS MARGUERITE Administration - Exam General Appearance: NAD, awake alert Eye: PERRL, anicteric sclera ENT: normocephalic atraumatic, no oropharyngeal lesions Neck: supple, symmetric, no JVD Heart: RRR, no murmur, no gallops, no rubs Respiratory: CTAB, no wheezes, no rales, no ronchi Gastrointestinal: soft, non-tender, non-distended, normal bowel sounds, no palpable masses Extremities: no cyanosis, no clubbing, no edema Skin: normal turgor, no lesions Neurological: no focal deficits Musculoskeletal: normal tone, normal strength Psychiatric: normal affect, normal behavior Hosp A/P (1) Allergic reaction caused by a drug Code(s): T78.40XA - ALLERGY, UNSPECIFIED, INITIAL ENCOUNTER Status: Resolved Plan: No further symptoms associated with allergic reaction with Venofer (2) Iron deficiency anemia Code(s): D50.9 - IRON DEFICIENCY ANEMIA, UNSPECIFIED Status: Acute Qualifiers: Iron deficiency anemia type: inadequate dietary iron intake Qualified Code(s): D50.8 - Other iron deficiency anemias (3) Obesity (BMI 30-39.9) Code(s): E66.9 - OBESITY, UNSPECIFIED Status: Chronic (4) Asthma Code(s): J45.909 - UNSPECIFIED ASTHMA, UNCOMPLICATED Status: Chronic Qualifiers: Asthma severity: mild (5) Hypothyroidism Code(s): E03.9 - HYPOTHYROIDISM, UNSPECIFIED Status: Chronic (6) Tobacco abuse Code(s): Z72.0 - TOBACCO USE Status: Chronic - Plan old records reviewed/req Plan for discharge today, see discharge summary
--- NOTE | 2020-05-09 11:28 | DIS ---
DATE OF ADMISSION: 05/07/2020 DATE OF DISCHARGE: 05/09/2020 PRIMARY CARE PHYSICIAN: Dr. Davon Quintanilla. DISCHARGE DISPOSITION: Home. PRIMARY DISCHARGE DIAGNOSES: 1. Iron deficiency anemia. 2. Urinary tract infection. 3. Allergic reaction to ferric gluconate. SECONDARY DISCHARGE DIAGNOSES: Tobacco abuse disorder, hypothyroidism, asthma, anxiety and depression, obesity with BMI 34. PRIMARY PROCEDURE/OPERATION: None. RADIOLOGICAL INVESTIGATION: Abdomen and pelvis CT scan was normal. SIGNIFICANT LABORATORY DATA: Hemoglobin 8.1. Creatinine 0.60. Ferritin 3.86. LFT normal. Electrolytes normal. Urinalysis suggestive of UTI. COVID-19 negative. Urine culture grew E coli. DISCHARGE MEDICATIONS: 1. Amitriptyline 25 mg p.o. daily. 2. Synthroid 75 mcg p.o. daily. 3. [place] one tablet t.i.d. p.r.n. 4. Prilosec 10 mg p.o. daily. 5. Risperidone 2 mg p.o. daily. 6. Tizanidine 4 mg b.i.d. p.r.n. 7. Xanax 2 mg p.o. at bedtime. 8. Zoloft 100 mg daily. 9. Ferrous sulfate 325 mg b.i.d. 10. Macrobid 100 mg twice daily. 11. Pepcid 20 mg p.o. b.i.d. for one month only. CONTRAINDICATION: None. CODE STATUS: Full code. INPATIENT EXECUTIVE LEGAL SECRETARY: None. ALLERGY: Ferric gluconate. DISCHARGE PLAN: Post hospital, the patient is instructed to see primary care physician in 1 week. HOSPITAL COURSE: A 29-year-old female, who was admitted in the hospital for generalized weakness. She was also having nausea, vomiting, and diarrhea at home and that is why she had CT abdomen and pelvis, which was unremarkable. Her urinalysis was suspected for UTI and she was treated with Rocephin while in the hospital and subsequently, urine culture grew E coli and based on culture and sensitivity result, we changed to Macrobid on discharge for another 5 days. As she has iron deficiency anemia based on Anemia workup, we know for a while in hospital. The patient tolerated the first dose of Venofer without any side effects. For second dose, the patient developed allergic reaction and that is why we have to hold her discharge. Next day, the patient was feeling better. Overall, she is doing much better and she will continue to follow up with PCP as an outpatient basis. I have discussed with the patient to avoid NSAIDs and she needs to follow up with Gastroenterology as an outpatient basis for anemia evaluation if needed. Job ID: [id number]
[2020-05-09 11:37] VITALS: BP 135/80; TEMP 98.5
== END 2020-05-09 12:47 | disposition home or self-care (01) ==
LOC: ERS 14:13 → T4-A 19:17
PROVIDERS: ADMIT Internal Medicine; ATTEND Internal Medicine
DX: T45.4X5A Adverse effect of iron and its compounds, initial encounter (principal); D50.8 Other iron deficiency anemias; N39.0 Urinary tract infection, site not specified; F17.210 Nicotine dependence, cigarettes, uncomplicated; A08.4 Viral intestinal infection, unspecified; E03.9 Hypothyroidism, unspecified; J45.909 Unspecified asthma, uncomplicated; F41.9 Anxiety disorder, unspecified; F32.9 Major depressive disorder, single episode, unspecified; E66.9 Obesity, unspecified; G89.29 Other chronic pain; M54.5 Low back pain; K76.0 Fatty (change of) liver, not elsewhere classified; Z3A.34 34 weeks gestation of pregnancy; Z20.828 Contact with and (suspected) exposure to other viral communicable diseases; Z79.899 Other long term (current) drug therapy; Z88.8 Allergy status to other drugs, medicaments and biological substances
CPT/HCPCS: 36415; 74177; 80048; 80053; 81003; 81015; 81025; 82728; 83540; 83550; 83690; 84443; 84703; 85025; 87077; 87086; 87186; 87635; 93005; 96365; 96366; 96367; 96375; 96376; G0378; J0696; J1200; J2270; J2405; J2916; J2920; J3490; Q9967; S0028; U0003

== ENCOUNTER 2020-05-26 11:40 | Emergency (ER) | payer SELFPAY ==
[2020-05-26 14:26] LABS: Hemoglobin 10.1 g/dL (12.0-16.0); Mean Corpuscular HGB CONC 31.9 g/dL (32.0-36.0); Mean Corpuscular Hemoglobin 27.9 pg (27.0-31.0); Mean Corpuscular Volume 87.5 fL (78.0-98.0); Mean Platelet Volume 7.8 fL (7.4-10.4); Platelet Count 302 thou/uL (130-400); RBC Distribution Width 24.6 % (11.5-14.5); Red Blood Cell (RBC) Count 3.63 mill/uL (4.20-5.40); White Blood Cell (WBC) Count 6.3 thou/uL (4.8-10.8)
[2020-05-26 14:41] LABS: BHCG - Serum Negative (NEGATIVE); Pregs Control Background? CLEAR/WHITE (CLR/WHITE); Pregs Control Bar Appear? YES (CONTROL BAR)
[2020-05-26 14:42] LABS: ALT (SGPT) 45 U/L (8-55); AST (SGOT) 18 U/L (5-34); Albumin 3.8 g/dL (3.5-5.0); Alkaline Phosphatase 50 U/L (40-110); Anion Gap 12 mmol/L (10-20); BUN (Urea Nitrogen) 13 mg/dL (7.0-18.7); Bilirubin, Total 0.4 mg/dL (0.2-1.2); Calc. Creatinine Clearance 0 mL/min (70-130); Calcium 8.6 mg/dL (7.8-10.44); Carbon Dioxide 24 mmol/L (22-29); Chloride 107 mmol/L (98-107); Estimated GFR-MDRD Greater than 90; Globulin 2.6 g/dL (2.4-3.5); Glucose 129 mg/dL (70-105); Potassium 3.7 mmol/L (3.5-5.1); Protein, Total 6.4 g/dL (6.0-8.3); Sodium 139 mmol/L (136-145)
[2020-05-26 14:58] LABS: #Eosinphils 0.1 thou/uL (0.0-0.7); #Lymphocytes 1.4 thou/uL (1.20-3.40); #Monocytes 0.2 thou/uL (0.11-0.59); #Neutrophils 4.5 thou/uL (1.40-6.50); %Basophils 0.6 % (0.0-1.0); %Eosinophils 1.5 % (0.0-10.0); %Lymphocytes 21.8 % (21.0-51.0); %Monocytes 3.5 % (0.0-10.0); %Neutrophils 72.6 % (42.0-75.0); Anisocytosis MODERATE=16-30 cells (100X) (0-5/hpf); Hypochromia MODERATE=16-30 cells (100X) (0-5/hpf); MDiff Complete? YES; Platelet Morphology Comment Appears Adequate; Polychromasia SLIGHT = 2-3 cells (100X) (0-2/hpf); Reflex for Review?? YES; Schistocytes SLIGHT = 2-5 cells (100X) (0-1/hpf); Target Cells SLIGHT = 2-5 cells (100X) (0-1/hpf); Tear Drops SLIGHT = 2-5 cells (100X) (0-1/hpf)
== END 2020-05-26 15:09 | disposition home or self-care (01) ==
LOC: ERS 11:40
DX: F13.239 Sedative, hypnotic or anxiolytic dependence with withdrawal, unspecified (principal); F15.23 Other stimulant dependence with withdrawal; E03.9 Hypothyroidism, unspecified; J45.909 Unspecified asthma, uncomplicated; F41.9 Anxiety disorder, unspecified; F31.9 Bipolar disorder, unspecified; F17.210 Nicotine dependence, cigarettes, uncomplicated; Z79.899 Other long term (current) drug therapy
CPT/HCPCS: 36415; 80053; 84703; 85025; 85060; 93005

== ENCOUNTER 2020-05-27 11:33 | Emergency (ER) | payer SELFPAY ==
[2020-05-27 12:44] LABS: Bilirubin Negative (Negative); Blood, Urine Negative (Negative); Clarity Clear (Clear); Glucose, Urine (Dipstick) Normal (Negative); Ketone, Urine Negative (Negative); Leukocyte Negative Leu/uL (Negative); Nitrite Negative (Negative); Protein, Urine (Dipstick) 20 mg/dL (Neg-Trace); Specific Gravity, Urine 1.021 (1.002-1.036); pH, Urine 6.5 (5.0-9.0)
[2020-05-27 12:46] LABS: Pregnancy Test - Urine (BHCG) Negative (Negative); Pregu Control Background? CLEAR/WHITE (CLR/WHITE); Pregu Control Bar Appear? YES (CONTROL BAR); Specific Gravity 1.021 (1.002-1.036)
[2020-05-27 12:51] LABS: #Basophils 0.1 thou/uL (0.0-0.2); #Eosinphils 0.2 thou/uL (0.0-0.7); #Lymphocytes 1.5 thou/uL (1.20-3.40); #Monocytes 0.3 thou/uL (0.11-0.59); #Neutrophils 4.4 thou/uL (1.40-6.50); %Basophils 0.9 % (0.0-1.0); %Eosinophils 2.3 % (0.0-10.0); %Lymphocytes 23.8 % (21.0-51.0); %Monocytes 4.8 % (0.0-10.0); %Neutrophils 68.2 % (42.0-75.0); Mean Corpuscular HGB CONC 32.7 g/dL (32.0-36.0); Mean Corpuscular Hemoglobin 28.4 pg (27.0-31.0); Mean Corpuscular Volume 86.9 fL (78.0-98.0); Mean Platelet Volume 7.6 fL (7.4-10.4); Platelet Count 306 thou/uL (130-400); RBC Distribution Width 24.8 % (11.5-14.5); Red Blood Cell (RBC) Count 3.54 mill/uL (4.20-5.40); White Blood Cell (WBC) Count 6.5 thou/uL (4.8-10.8)
[2020-05-27 13:07] LABS: ALT (SGPT) 32 U/L (8-55); AST (SGOT) 15 U/L (5-34); Acetaminophen Less than 6.0 mcg/mL (10.0-30.0); Albumin 3.6 g/dL (3.5-5.0); Alcohol Less than 10 mg/dL (Less than 10); Alkaline Phosphatase 48 U/L (40-110); Anion Gap 9 mmol/L (10-20); BUN (Urea Nitrogen) 11 mg/dL (7.0-18.7); Bilirubin, Total 0.3 mg/dL (0.2-1.2); CK (CPK) 55 U/L (29-168); Calc. Creatinine Clearance 0 mL/min (70-130); Carbon Dioxide 27 mmol/L (22-29); Chloride 108 mmol/L (98-107); Estimated GFR-MDRD Greater than 90; Globulin 2.6 g/dL (2.4-3.5); Glucose 103 mg/dL (70-105); Potassium 4.1 mmol/L (3.5-5.1); Protein, Total 6.2 g/dL (6.0-8.3); Salicylate Less than 8.0 mg/dL (15.0-30.0); Sodium 140 mmol/L (136-145)
[2020-05-27 13:10] LABS: Anisocytosis MODERATE=16-30 cells (100X) (0-5/hpf); Hypochromia SLIGHT = 6-15 cells (100X) (0-5/hpf); MDiff Complete? YES; Platelet Morphology Comment Appears Adequate; Polychromasia MODERATE = 3-4 cells (100X) (0-2/hpf)
[2020-05-27 13:19] LABS: Cocaine Metabolite Screen Not Detected (NotDetected); Medtox Reader # READER 1; Methamphetamine Not Detected (NotDetected); Opiate Screen Detected (NotDetected); Phencyclidine (PCP) Not Detected (NotDetected); THC/Cannabinoid Screen Not Detected (NotDetected)
[2020-05-27 13:20] LABS: Amphetamine Not Detected (NotDetected); Barbiturates Screen Not Detected (NotDetected); Benzodiazepine Screen Not Detected (NotDetected); Medtox Control Line Valid? VALID (VALID); Methadone Not Detected (NotDetected); Oxycodone Screen Not Detected (NotDetected); Tricyclic Screen Not Detected (NotDetected)
[2020-05-27] MEDS ORDERED: hydrOXYzine 25 MG TAB ONE (19:24)
[2020-05-27] MEDS ORDERED: chlordiazePOXIDE HCl 25 MG CAP ONE (20:49)
[2020-05-27] MEDS ORDERED: Ibuprofen 200 MG TAB ONE (21:11)
[2020-05-27] MEDS ORDERED: Diazepam 5 MG TAB ONE (21:55)
[2020-05-28] MEDS ORDERED: Acetaminophen 325 MG TAB ONE (05:56)
[2020-05-28] MEDS ORDERED: traZODone HCl 50 MG TAB ONE (06:04)
[2020-05-28] MEDS ORDERED: Lorazepam 2 MG/ML VIAL ONE (08:53)
[2020-05-28] MEDS ORDERED: risperiDONE 1 MG TAB ONE (09:13)
[2020-05-28] MEDS ORDERED: hydrOXYzine Pamoate 25 mg Capsule PO PRN (09:29)
[2020-05-28] MEDS ORDERED: Acetaminophen 325 MG TAB PO PRN (09:34)
[2020-05-28] MEDS ORDERED: traZODone HCl 50 MG TAB PO PRN (09:34)
[2020-05-28] MEDS ORDERED: Lorazepam 2 MG/ML VIAL SLOW IVP SCH (09:45)
[2020-05-28] MEDS ORDERED: chlordiazePOXIDE HCl 25 MG CAP PO SCH (09:45)
[2020-05-28] MEDS ORDERED: Ibuprofen 600 MG TAB PO SCH (09:45)
[2020-05-28] MEDS ORDERED: Diazepam 5 MG TAB PO SCH (09:45)
[2020-05-28] MEDS ORDERED: hydrOXYzine 25 MG TAB PO SCH (09:45)
[2020-05-28] MEDS ORDERED: Levothyroxine Sodium 75 MCG TAB PO SCH (10:00)
[2020-05-28] MEDS ORDERED: risperiDONE 1 MG TAB PO SCH (21:00)
[2020-05-29] MEDS ORDERED: Levothyroxine Sodium 75 MCG TAB PO SCH (06:00)
== END 2020-05-27 16:22 | disposition home or self-care (01) ==
LOC: ERS 11:33
DX: F43.20 Adjustment disorder, unspecified (principal); F19.10 Other psychoactive substance abuse, uncomplicated; R45.851 Suicidal ideations; E03.9 Hypothyroidism, unspecified; J45.909 Unspecified asthma, uncomplicated; D64.9 Anemia, unspecified; F17.210 Nicotine dependence, cigarettes, uncomplicated; Z79.899 Other long term (current) drug therapy
CPT/HCPCS: 36415; 80053; 80306; 80307; 81003; 81025; 82550; 84443; 85025; 93005; 96372; 99285; J2060

== ENCOUNTER 2020-08-21 10:05 | Inpatient (IN) | payer SELFPAY ==
[2020-08-21 10:50] LABS: #Eosinphils 0.4 thou/uL (0.0-0.7); #Lymphocytes 1.4 thou/uL (1.20-3.40); #Monocytes 0.7 thou/uL (0.11-0.59); #Neutrophils 5.8 thou/uL (1.40-6.50); %Basophils 0.2 % (0.0-1.0); %Eosinophils 4.6 % (0.0-10.0); %Lymphocytes 17.1 % (21.0-51.0); %Monocytes 8.6 % (0.0-10.0); %Neutrophils 69.5 % (42.0-75.0); Hemoglobin 10.6 g/dL (12.0-16.0); Mean Corpuscular HGB CONC 31.9 g/dL (32.0-36.0); Mean Corpuscular Hemoglobin 28.2 pg (27.0-31.0); Mean Corpuscular Volume 88.5 fL (78.0-98.0); Mean Platelet Volume 7.3 fL (7.4-10.4); Platelet Count 319 thou/uL (130-400); Red Blood Cell (RBC) Count 3.74 mill/uL (4.20-5.40); White Blood Cell (WBC) Count 8.3 thou/uL (4.8-10.8)
[2020-08-21 11:05] LABS: ALT (SGPT) 617 U/L (8-55); AST (SGOT) 471 U/L (5-34); Alkaline Phosphatase 189 U/L (40-110); Anion Gap 15 mmol/L (10-20); BUN (Urea Nitrogen) 12 mg/dL (7.0-18.7); Bilirubin, Total 3.2 mg/dL (0.2-1.2); Calc. Creatinine Clearance 0 mL/min (70-130); Calcium 8.7 mg/dL (7.8-10.44); Carbon Dioxide 21 mmol/L (22-29); Chloride 107 mmol/L (98-107); Globulin 3.1 g/dL (2.4-3.5); Glucose 97 mg/dL (70-105); Potassium 3.9 mmol/L (3.5-5.1); Protein, Total 7.1 g/dL (6.0-8.3); Sodium 139 mmol/L (136-145)
[2020-08-21 11:30] LABS: BHCG - Serum Negative (NEGATIVE); Pregs Control Background? CLEAR/WHITE (CLR/WHITE); Pregs Control Bar Appear? YES (CONTROL BAR)
[2020-08-21] MEDS ORDERED: Morphine 4 MG/ML VIAL ONE (11:30)
[2020-08-21] MEDS ORDERED: Ondansetron PF 4 MG/2 ML Vial ONE (11:30)
[2020-08-21] MEDS ORDERED: Pantoprazole 40 MG VIAL ONE (11:30)
--- NOTE | 2020-08-21 13:49 | ULT ---
GALLBLADDER ULTRASOUND: 08/21/20 HISTORY: Right upper quadrant pain. Epigastric pain. history of gastric sleeve surgery. FINDINGS: The gallbladder is distended measuring 12.5 cm with multiple shadowing gallstones with no gallbladder wall thickening or pericholecystic fluid. The common duct measures 11 mm proximally and distally 5 m m. There is mild intrahepatic ductal dilatation as well. There is increased echogenicity of the live r consistent with fatty infiltration without mass. The right kidney and visualized portions of the pa ncreas are unremarkable. No free fluid is seen in Bocanegra's pouch. IMPRESSION: 1. Cholelithiasis with biliary ductal dilatation and gallbladder distention. 2. Fatty liver. RECOMMENDATION: If there is concern for acute cholecystitis, further evaluation with HIDA scan should be performed. POS: AUDREY
--- NOTE | 2020-08-21 14:38 | PDOC.HHP ---
Hospitalist HPI Abdominal pain History of Present Illness: Patient is a pleasant 30-year-old lady who was seen in the emergency room on August 21, 2020. She reports that 3 days ago she developed abdominal pain. Pain is mainly in the epigastrium, radiating mostly to the right upper quadrant but also to the left upper quadrant, sharp, 10 out of 10 at its worst, also radiating to the back, no known aggravating or relieving factors. She has been unable to tolerate any diet. She reports nausea and vomiting that started today. She denies any fevers or chills. She denies any chest pain or shortness of breath. She presented to the emergency room because of the above complaints. In the emergency room, she was diagnosed with gallstone pancreatitis and referred to hospitalist service for admission. ED Course: BP: 137/88, Pulse: 97, Resp: 16, Temp: 98.1 (Oral), Pain: 8, O2 sat: 100 on (Room Air), Time: 08/21/2020 10:06. Allergies/Adverse Reactions: Allergy/AdvReac Type Severity Reaction Status Date / Time ferric gluconate Allergy Uncoded 05/08/20 12:26 Home Medications: Medication Instructions Recorded Confirmed Type Amitriptyline HCl 25 mg PO DAILY 02/18/19 05/08/20 History Levothyroxine Sodium 75 mcg PO DAILY 02/18/19 05/08/20 History Omeprazole Magnesium [Prilosec] 10 mg PO DAILY 02/18/19 05/08/20 History Sertraline HCl [Zoloft] 100 mg PO HS 02/18/19 05/08/20 History risperiDONE [RisperDAL] 2 mg PO DAILY 02/18/19 05/08/20 History ALPRAZolam [Xanax] 2 mg PO HS 05/08/20 05/08/20 History Famotidine [Pepcid] 20 mg PO BID #60 tab 05/08/20 Rx Ferrous Sulfate 325 mg PO BID #60 tablet 05/08/20 Rx HYDROcodone Bit/APAP 5/325 [[place]] 1 tab PO TID PRN 05/08/20 05/08/20 History Nitrofurantoin Monohyd/M-Cryst 100 mg PO BID #10 cap 05/08/20 Rx [Macrobid] tiZANidine HCl [Tizanidine HCl] 4 mg PO BID 05/08/20 05/08/20 History Past History: Past medical history: Chronic anemia, chronic low back pain and obesity Psychiatric history: Anxiety, depression and bipolar disorder Surgical history: Gastric sleeve surgery and section x3 Social history: Patient smokes half a pack of cigarettes a day. She denies alcohol use or recreational drug use. Family history: No family history of premature coronary artery disease. Hospitalist HPI ROS Constitutional: denies: fever, chills, sweats, weakness, malaise Gastrointestinal: reports: nausea, vomiting, abdominal pain. denies: diarrhea, constipation, melena, hematochezia Genitourinary: denies: dysuria, frequency, incontinence, hematuria, retention All other systems reviewed; all pertinent +/- noted in HPI/Subj Hospitalist Exam General Appearance: awake alert Eye: anicteric sclera ENT: moist mucosa Neck: supple, symmetric, no thyromegaly, no lymphadenopathy Heart: RRR, no rubs Respiratory: CTAB, no wheezes Gastrointestinal: normal bowel sounds, no guarding, no rigidity Gastrointestinal - other findings: Soft, tender in the right upper quadrant and epigastrium Extremities: no cyanosis Skin: no rashes Musculoskeletal: no muscle wasting Psychiatric: normal affect, normal behavior, A&O x 3 Hospitalist Results Result Diagrams: 08/21/20 10:31 08/21/20 10:31 Lab results: Laboratory Last Values WBC 8.3 thou/uL (4.8-10.8) 08/21/20 10:31 RBC 3.74 mill/uL (4.20-5.40) L 08/21/20 10:31 Hgb 10.6 g/dL (12.0-16.0) L 08/21/20 10:31 Hct 33.1 % (36.0-47.0) L 08/21/20 10:31 MCV 88.5 fL (78.0-98.0) 08/21/20 10:31 MCH 28.2 pg (27.0-31.0) 08/21/20 10:31 MCHC 31.9 g/dL (32.0-36.0) L 08/21/20 10:31 RDW 15.0 % (11.5-14.5) H 08/21/20 10:31 Plt Count 319 thou/uL (130-400) 08/21/20 10:31 MPV 7.3 fL (7.4-10.4) L 08/21/20 10:31 Neutrophils % 69.5 % (42.0-75.0) 08/21/20 10:31 Lymphocytes % 17.1 % (21.0-51.0) L 08/21/20 10:31 Monocytes % 8.6 % (0.0-10.0) 08/21/20 10:31 Eosinophils % 4.6 % (0.0-10.0) 08/21/20 10:31 Basophils % 0.2 % (0.0-1.0) 08/21/20 10:31 Neutrophils # 5.8 thou/uL (1.40-6.50) 08/21/20 10:31 Lymphocytes # 1.4 thou/uL (1.20-3.40) 08/21/20 10:31 Monocytes # 0.7 thou/uL (0.11-0.59) H 08/21/20 10:31 Eosinophils # 0.4 thou/uL (0.0-0.7) 08/21/20 10:31 Basophils # 0.0 thou/uL (0.0-0.2) 08/21/20 10:31 Sodium 139 mmol/L (136-145) 08/21/20 10:31 Potassium 3.9 mmol/L (3.5-5.1) 08/21/20 10:31 Chloride 107 mmol/L (98-107) 08/21/20 10:31 Carbon Dioxide 21 mmol/L (22-29) L 08/21/20 10:31 Anion Gap 15 mmol/L (10-20) 08/21/20 10:31 BUN 12 mg/dL (7.0-18.7) 08/21/20 10:31 Creatinine 0.71 mg/dL (0.6-1.1) 08/21/20 10:31 Estimated GFR (MDRD) Greater than 90 08/21/20 10:31 Glucose 97 mg/dL (70-105) 08/21/20 10:31 Calcium 8.7 mg/dL (7.8-10.44) 08/21/20 10:31 Total Bilirubin 3.2 mg/dL (0.2-1.2) H 08/21/20 10:31 AST 471 U/L (5-34) H 08/21/20 10:31 ALT 617 U/L (8-55) H 08/21/20 10:31 Alkaline Phosphatase 189 U/L (40-110) H 08/21/20 10:31 Troponin I Less than 0.010 ng/mL (< 0.028) 08/21/20 10:31 Serum Total Protein 7.1 g/dL (6.0-8.3) 08/21/20 10:31 Albumin 4.0 g/dL (3.5-5.0) 08/21/20 10:31 Globulin 3.1 g/dL (2.4-3.5) 08/21/20 10:31 Albumin/Globulin Ratio 1.3 g/dL (1.2-2.2) 08/21/20 10:31 Lipase Greater than 92345 U/L (8-78) H 08/21/20 10:31 Serum , Qual Negative (NEGATIVE) 08/21/20 11:13 US - abdomen Additional Comments: GALLBLADDER ULTRASOUND: 08/21/20 HISTORY: Right upper quadrant pain. Epigastric pain. history of gastric sleeve surgery. FINDINGS: The gallbladder is distended measuring 12.5 cm with multiple shadowing gallstones with no gallbladder wall thickening or pericholecystic fluid. The common duct measures 11 mm proximally and distally 5 m m. There is mild intrahepatic ductal dilatation as well. There is increased echogenicity of the live r consistent with fatty infiltration without mass. The right kidney and visualized portions of the pa ncreas are unremarkable. No free fluid is seen in Morrisons pouch. IMPRESSION: 1. Cholelithiasis with biliary ductal dilatation and gallbladder distention. 2. Fatty liver. RECOMMENDATION: If there is concern for acute cholecystitis, further evaluation with HIDA scan should be performed. Hospitalist H&P A/P (1) Gallstone pancreatitis Code(s): K85.10 - BILIARY ACUTE PANCREATITIS WITHOUT NECROSIS OR INFECTION Status: Acute (2) Cholelithiasis Code(s): K80.20 - CALCULUS OF GALLBLADDER W/O CHOLECYSTITIS W/O OBSTRUCTION Status: Acute (3) Hypothyroidism Code(s): E03.9 - HYPOTHYROIDISM, UNSPECIFIED Status: Chronic (4) Obesity (BMI 30-39.9) Code(s): E66.9 - OBESITY, UNSPECIFIED Status: Chronic (5) Tobacco abuse Code(s): Z72.0 - TOBACCO USE Status: Chronic Plan: Keep patient n.p.o. GI consult. Trend LFTs and lipase. Pain management with narcotics. Resume home medications once clarified. Nicotine patch. Patient has been counseled regarding tobacco cessation. Level of risk: Moderate Level of complexity: Moderate Estimated length of stay in the hospital: Greater than 2 midnights.
[2020-08-21] MEDS: Morphine 2 MG/ML VIAL SLOW IVP PRN ×3 (15:21→23:34)
[2020-08-21] MEDS: Sodium Chloride 0.9% 1,000 ML IV SCH (15:21)
[2020-08-21 15:22] VITALS: BMI 36.6
[2020-08-21] MEDS ORDERED: Ketorolac Tromethamine 30 MG/ML VIAL IVP SCH (17:15)
--- NOTE | 2020-08-21 18:40 | PDOC.GSCN ---
Surgery Consult: HPI - Consult details Date: 08/21/20 Time: 18:39 History of present illness: 08/21/20 18:39 Chief complaint-my abdomen hurts History of present illness-the patient is a 30-year-old female who presented to the emergency room with 3 days of epigastric pain. She has a history of a gastric sleeve. She states whenever she eats "a lot" she usually gets abdominal pain that lasts approximately 1 hour. This time, the pain persisted. It is located in the epigastric and right upper quadrant. 10 out of 10. Sometimes radiates through to her back. She has had some nausea and vomiting. Decreased appetite. Pain medicine is making it better. Eating seems to make it worse. Surgery Consult: ROS - Review of Systems ROS unobtainable: other (Negative for 10 system, two-point per system other than HPI) Surgery Consult: PM Past Medical History: Hypothyroidism, history of obesity, anxiety, chronic anemia, GERD Past Surgical History: x3, gastric sleeve in [place] - Past Family History Pertinent family history: History of diabetes and hypertension - Past Social History Smoking Status: Current every day smoker Alcohol Use: none Surgery Consult: Exam - Vital signs Vital signs: Vital Signs - Most Recent Temp Pulse Resp BP Pulse Ox 98.5 F 72 16 109/72 100 08/21/20 14:45 08/21/20 14:45 08/21/20 14:45 08/21/20 14:45 08/21/20 14:45 - Physical Exam Additional exam: General-uncomfortable but not in extremitas Head-[normocephalic, atraumatic] HEENT- [EOMI], [PERRLA] Neck-[trachea midline, supple] Lungs-[grossly clear to auscultation], [normal air movement] Heart-[regular regular], [no murmurs] Abdomen-[soft], [nondistended], tender to palpation in the epigastric and right upper quadrant region without peritoneal signs, [normal active bowel sounds] Musculosketal-[full range of motion], [no gross deformity] Psychiatric-[good insight, good judgment] Skin-[good turgor, no jaundice] Neuro- [GCS 15], [CN II-XII intact] Surgery Consult: Meds - Medications MAR Reviewed: Yes Medications: Current Medications Sodium Chloride (Normal Saline 0.9%) 1,000 mls @ 100 mls/hr IV .Q10H MARGUERITE Last Admin: 08/21/20 15:21 Dose: 1,000 mls Documented by: Ketorolac Tromethamine (Ketorolac Tromethamine 30 Mg/Ml Vial) 30 mg IVP NOW MARGUERITE Stop: 08/21/20 20:15 Ketorolac Tromethamine (Ketorolac Tromethamine 30 Mg/Ml Vial) 15 mg IVP Q6HR MARGUERITE Stop: 08/26/20 18:01 Morphine Sulfate (Morphine 2 Mg/Ml Vial) 4 mg SLOW IVP Q4H PRN PRN Reason: Pain Last Admin: 08/21/20 15:21 Dose: 4 mg Documented by: Ondansetron HCl (Ondansetron Pf 4 Mg/2 Ml Vial) 4 mg IVP Q6H PRN PRN Reason: Nausea/Vomiting Sodium Chloride (Flush - Normal Saline 10 Ml Syringe) 10 ml IVF PRN PRN PRN Reason: Saline Flush - Allergies Allergies/Adverse Reactions: Allergies Allergy/AdvReac Type Severity Reaction Status Date / Time ferric gluconate Allergy Uncoded 05/08/20 12:26 Surgery Consult: Results - Labs Result Diagrams: 08/21/20 10:31 08/21/20 10:31 Lab results: Laboratory Results WBC 8.3 thou/uL (4.8-10.8) 08/21/20 10:31 RBC 3.74 mill/uL (4.20-5.40) L 08/21/20 10:31 Hgb 10.6 g/dL (12.0-16.0) L 08/21/20 10:31 Hct 33.1 % (36.0-47.0) L 08/21/20 10:31 MCV 88.5 fL (78.0-98.0) 08/21/20 10:31 MCH 28.2 pg (27.0-31.0) 08/21/20 10:31 MCHC 31.9 g/dL (32.0-36.0) L 08/21/20 10:31 RDW 15.0 % (11.5-14.5) H 08/21/20 10:31 Plt Count 319 thou/uL (130-400) 08/21/20 10:31 MPV 7.3 fL (7.4-10.4) L 08/21/20 10:31 Neutrophils % 69.5 % (42.0-75.0) 08/21/20 10:31 Lymphocytes % 17.1 % (21.0-51.0) L 08/21/20 10:31 Monocytes % 8.6 % (0.0-10.0) 08/21/20 10:31 Eosinophils % 4.6 % (0.0-10.0) 08/21/20 10:31 Basophils % 0.2 % (0.0-1.0) 08/21/20 10:31 Neutrophils # 5.8 thou/uL (1.40-6.50) 08/21/20 10:31 Lymphocytes # 1.4 thou/uL (1.20-3.40) 08/21/20 10:31 Monocytes # 0.7 thou/uL (0.11-0.59) H 08/21/20 10:31 Eosinophils # 0.4 thou/uL (0.0-0.7) 08/21/20 10:31 Basophils # 0.0 thou/uL (0.0-0.2) 08/21/20 10:31 Sodium 139 mmol/L (136-145) 08/21/20 10:31 Potassium 3.9 mmol/L (3.5-5.1) 08/21/20 10:31 Chloride 107 mmol/L (98-107) 08/21/20 10:31 Carbon Dioxide 21 mmol/L (22-29) L 08/21/20 10:31 Anion Gap 15 mmol/L (10-20) 08/21/20 10:31 BUN 12 mg/dL (7.0-18.7) 08/21/20 10:31 Creatinine 0.71 mg/dL (0.6-1.1) 08/21/20 10:31 Estimated GFR (MDRD) Greater than 90 08/21/20 10:31 Glucose 97 mg/dL (70-105) 08/21/20 10:31 Calcium 8.7 mg/dL (7.8-10.44) 08/21/20 10:31 Total Bilirubin 3.2 mg/dL (0.2-1.2) H 08/21/20 10:31 AST 471 U/L (5-34) H 08/21/20 10:31 ALT 617 U/L (8-55) H 08/21/20 10:31 Alkaline Phosphatase 189 U/L (40-110) H 08/21/20 10:31 Troponin I Less than 0.010 ng/mL (< 0.028) 08/21/20 10:31 Serum Total Protein 7.1 g/dL (6.0-8.3) 08/21/20 10:31 Albumin 4.0 g/dL (3.5-5.0) 08/21/20 10:31 Globulin 3.1 g/dL (2.4-3.5) 08/21/20 10:31 Albumin/Globulin Ratio 1.3 g/dL (1.2-2.2) 08/21/20 10:31 Lipase Greater than 74785 U/L (8-78) H 08/21/20 10:31 Serum , Qual Negative (NEGATIVE) 08/21/20 11:13 - Radiology Interpretation US - abdomen Additional comments: Ultrasound of the abdomen-independently viewed the images, I read the radiologist interpretation-patient has cholelithiasis. Common bile duct is dilated over a centimeter. Surgery Consult: A/P - Problem (1) Gallstone pancreatitis Current Visit: Yes Code(s): K85.10 - BILIARY ACUTE PANCREATITIS WITHOUT NECROSIS OR INFECTION Status: Acute Assessment and Plan: The patient's LFTs are elevated and she has a dilated common bile duct. In addition, her pancreatic enzymes are significantly elevated. This picture is consistent with gallstone pancreatitis. Gastroenterology has been consulted for ERCP. I think this is a reasonable first step given the size of her duct and her liver enzymes. Hopefully, we can get her ERCP soon and follow that with a laparoscopic chol ecystectomy. Her father approximately 4 months ago and her mother just . She has a next week. Until then, trend LFTs, n.p.o. GI consult for ERCP (2) Tobacco abuse Current Visit: No Code(s): Z72.0 - TOBACCO USE Status: Chronic Assessment and Plan: Increased risk for cardiopulmonary issues in the postoperative period
[2020-08-21] MEDS: Ketorolac Tromethamine 30 MG/ML VIAL IVP SCH (23:01)
[2020-08-22] MEDS ORDERED: diphenhydrAMINE 50 MG/ML VIAL IVP PRN (00:44)
--- NOTE | 2020-08-22 01:29 | CON ---
DATE OF CONSULTATION: 08/21/2020 HISTORY OF PRESENT ILLNESS: The patient is a 30-year-old female, who was in her normal state of health until 3 days ago when she developed severe epigastric pain radiating into the right upper quadrant. She has had this pain intermittently for some time and the pain became progressively worse. She right now is feeling better. She has no nausea or vomiting. No recent weight loss. PAST MEDICAL HISTORY: Includes chronic anemia, low back pain, obesity. PAST SURGICAL HISTORY: Includes gastric sleeve, that was done in [place]; and a . MEDICATIONS: Include; 1. Amitriptyline 25 mg p.o. daily. 2. Levothyroxine 75 mcg p.o. daily. 3. Omeprazole 10 mg p.o. daily. 4. Zoloft 100 mg p.o. at bedtime. 5. Risperdal 2 mg p.o. daily. 6. Xanax 2 mg p.o. at bedtime. 7. Pepcid 20 mg p.o. b.i.d. 8. Iron 325 mg p.o. b.i.d. 9. Hydrocodone 1 tab t.i.d. p.r.n. 10. Nitrofurantoin 100 mg p.o. b.i.d. 11. Tizanidine 4 mg p.o. b.i.d. ALLERGIES: INCLUDE FERRIC GLUCONATE. FAMILY HISTORY: Negative. REVIEW OF SYSTEMS: Noncontributory. PHYSICAL EXAMINATION: GENERAL: Shows an overweight female, in no acute distress. VITAL SIGNS: Temperature 98.5, pulse 72, respiratory rate 16, blood pressure 109/72. HEENT: Unremarkable. NECK: Supple. CHEST: Clear. CARDIOVASCULAR: Regular rate and rhythm. ABDOMEN: Soft, nontender without organomegaly or masses. EXTREMITIES: Normal. LABORATORY DATA: Significant for total bilirubin 3.2, AST of 471, ALT of 617, alkaline phosphatase of 189, lipase is greater than 16,000. CBC shows a hemoglobin of 10, hematocrit 33.1. Abdominal ultrasound shows dilated common duct and gallbladder, fatty liver. ASSESSMENT: Gallstone pancreatitis-suspicious for choledocholithiasis. RECOMMENDATIONS: ERCP in a.m. Job ID: [id number]
[2020-08-22] MEDS: Sodium Chloride 0.9% 1,000 ML IV SCH ×3 (02:30→16:23)
[2020-08-22] MEDS: Morphine 2 MG/ML VIAL SLOW IVP PRN ×5 (04:05→20:31)
[2020-08-22] MEDS: Ondansetron PF 4 MG/2 ML Vial IVP PRN ×3 (04:05→23:53)
[2020-08-22 04:55] LABS: SARS-CoV-2 PCR by NAA Not Detected (NotDetected)
[2020-08-22] MEDS: Ketorolac Tromethamine 30 MG/ML VIAL IVP SCH ×4 (05:18→23:04)
[2020-08-22 05:40] LABS: #Basophils 0.1 thou/uL (0.0-0.2); #Eosinphils 0.5 thou/uL (0.0-0.7); #Lymphocytes 1.8 thou/uL (1.20-3.40); #Monocytes 0.4 thou/uL (0.11-0.59); #Neutrophils 6.2 thou/uL (1.40-6.50); %Basophils 0.6 % (0.0-1.0); %Eosinophils 5.6 % (0.0-10.0); %Lymphocytes 20.3 % (21.0-51.0); %Monocytes 4.9 % (0.0-10.0); %Neutrophils 68.6 % (42.0-75.0); Hemoglobin 9.1 g/dL (12.0-16.0); Mean Corpuscular Hemoglobin 27.9 pg (27.0-31.0); Mean Corpuscular Volume 87.3 fL (78.0-98.0); Mean Platelet Volume 7.1 fL (7.4-10.4); Platelet Count 298 thou/uL (130-400); Red Blood Cell (RBC) Count 3.24 mill/uL (4.20-5.40); White Blood Cell (WBC) Count 9.1 thou/uL (4.8-10.8)
[2020-08-22 06:20] LABS: ALT (SGPT) 374 U/L (8-55); AST (SGOT) 178 U/L (5-34); Albumin 3.4 g/dL (3.5-5.0); Alkaline Phosphatase 138 U/L (40-110); Anion Gap 12 mmol/L (10-20); BUN (Urea Nitrogen) 14 mg/dL (7.0-18.7); Bilirubin, Total 0.6 mg/dL (0.2-1.2); Calc. Creatinine Clearance 198 mL/min (70-130); Calcium 7.9 mg/dL (7.8-10.44); Carbon Dioxide 21 mmol/L (22-29); Chloride 109 mmol/L (98-107); Globulin 2.5 g/dL (2.4-3.5); Glucose 73 mg/dL (70-105); Lipase 806 U/L (8-78); Potassium 3.7 mmol/L (3.5-5.1); Protein, Total 5.9 g/dL (6.0-8.3); Sodium 138 mmol/L (136-145)
[2020-08-22] MEDS ORDERED: Indomethacin 50 MG SUPP ONE (09:20)
[2020-08-22] MEDS ORDERED: Iothalamate Meglumine 60% 50 ML VIAL FS ONE (09:21)
--- NOTE | 2020-08-22 09:37 | PDOC.BPN ---
- Brief Progress Note Encounter Date: 08/22/20 Encounter Time: 09:37 Patient on getting ERCP.
[2020-08-22] MEDS ORDERED: Promethazine HCl 25 MG/ML VIAL IM PRN (09:48)
[2020-08-22] MEDS ORDERED: PACU-Morphine 4MG/ML VIAL SLOW IVP PRN (09:48)
[2020-08-22] MEDS ORDERED: Promethazine HCl 25 MG/ML VIAL SLOW IVP PRN (09:48)
[2020-08-22] MEDS ORDERED: Ondansetron HCl/PF 4 MG/2 ML Vial IVP PRN (09:48)
[2020-08-22] MEDS ORDERED: Meperidine HCl/PF 25 MG/ML VIAL SLOW IVP PRN (09:48)
[2020-08-22] MEDS ORDERED: Fentanyl 100 MCG/2 ML VIAL ONE (10:16)
--- NOTE | 2020-08-22 10:39 | RAD ---
ERCP: DATE: 08/22/2020 HISTORY: Right upper quadrant pain and cholelithiasis with biliary ductal dilatation and gallbladder distentio n on ultrasound of previous day. FINDINGS/IMPRESSION: Four spot fluoroscopic intraoperative images of the right upper quadrant during ERCP demonstrate opac ification of the common duct, portions of the hepatic ducts, and cystic duct without definite filling defects. The gallbladder and pancreatic duct are not opacified. POS: MZA
[2020-08-22] MEDS ORDERED: Dexamethasone 20 MG/5 ML VIAL ONE (11:05)
[2020-08-22] MEDS ORDERED: Rocuronium Bromide 10 MG/ML (10ML VIAL) ONE (11:05)
[2020-08-22] MEDS ORDERED: Lidocaine 1% PF 5 ML VIAL ONE (11:05)
[2020-08-22] MEDS ORDERED: PROPOFOL 200 MG/20 ML VIAL ONE (11:05)
[2020-08-22] MEDS ORDERED: Ondansetron PF 4 MG/2 ML Vial ONE (11:05)
[2020-08-22] MEDS ORDERED: Succinylcholine 200 MG/10 ml SYRINGE FS ONE (11:05)
[2020-08-22] MEDS: HYDROcodone/Acetaminophen 5/325 mg Tablet PO PRN ×2 (12:45→20:31)
--- NOTE | 2020-08-22 14:29 | PDOC.HOSPP ---
- Subjective Encounter Date: 08/22/20 Encounter Time: 10:30 Subjective: Patient seen this morning. ERCP done, report pending, i Plan for cholecystectomy tomorrow. N.p.o. at midnight - Objective Vital Signs & Weight: Vital Signs (12 hours) Temp Pulse Resp BP Pulse Ox 08/22/20 10:35 98 F 82 18 132/75 100 08/22/20 07:45 98.8 F 86 16 123/77 100 08/22/20 04:29 98.3 F 92 18 114/75 100 Weight Weight 200 lb I&O: 08/21/20 08/22/20 08/23/20 06:59 06:59 06:59 Intake Total 1600 500 Balance 1600 500 Result Diagrams: 08/22/20 05:24 08/22/20 05:23 Hospitalist ROS - Medication Medications: Active Medications Generic Name Dose Route Start Last Admin Trade Name Freq PRN Reason Stop Dose Admin Hydrocodone Bitart/Acetaminophen 1 tab 08/22/20 10:12 08/22/20 12:45 Hydrocodone/Acetaminophen 5/325 Mg Tablet PO 1 tab TID PRN Administration Pain Diphenhydramine HCl 25 mg 08/22/20 00:44 08/22/20 02:30 Diphenhydramine 50 Mg/Ml Vial IVP 08/23/20 00:45 25 mg ONE PRN Administration Anxiety/Insomnia Sodium Chloride 1,000 mls @ 100 mls/hr 08/21/20 14:30 08/22/20 10:47 Normal Saline 0.9% IV 1,000 mls .Q10H MARGUERITE Administration Ketorolac Tromethamine 15 mg 08/21/20 23:59 08/22/20 11:13 Ketorolac Tromethamine 30 Mg/Ml Vial IVP 08/26/20 18:01 15 mg Q6HR MARGUERITE Administration Morphine Sulfate 4 mg 08/21/20 14:16 08/22/20 11:55 Morphine 2 Mg/Ml Vial SLOW IVP 4 mg Q4H PRN Administration Pain Ondansetron HCl 4 mg 08/21/20 14:24 08/22/20 04:05 Ondansetron Pf 4 Mg/2 Ml Vial IVP 4 mg Q6H PRN Administration Nausea/Vomiting Hospitalist Exam Vitals: Vital Signs (12 hours) Temp Pulse Resp BP Pulse Ox 08/22/20 10:35 98 F 82 18 132/75 100 08/22/20 07:45 98.8 F 86 16 123/77 100 08/22/20 04:29 98.3 F 92 18 114/75 100 Weight Weight 200 lb General Appearance: NAD, awake alert Eye: PERRL ENT: normocephalic atraumatic Neck: supple Heart: RRR Respiratory: CTAB, normal chest expansion Gastrointestinal: soft, normal bowel sounds Neurological: cranial nerve grossly intact, no focal deficits Psychiatric: A&O x 3 Hosp A/P - Plan gallstone pancreatitis Code(s): K85.10 - BILIARY ACUTE PANCREATITIS WITHOUT NECROSIS OR INFECTION Status: Acute (2) Cholelithiasis Code(s): K80.20 - CALCULUS OF GALLBLADDER W/O CHOLECYSTITIS W/O OBSTRUCTION Status: Acute (3) Hypothyroidism Code(s): E03.9 - HYPOTHYROIDISM, UNSPECIFIED Status: Chronic (4) Obesity (BMI 30-39.9) Code(s): E66.9 - OBESITY, UNSPECIFIED Status: Chronic (5) Tobacco abuse Code(s): Z72.0 - TOBACCO USE Status: Chronic Plan: Trend LFTs and lipase. Pain management with narcotics. Status post ERCP Plan for laparoscopic cholecystectomy tomorrow Keep her n.p.o. midnight until then clear liquid diet.
[2020-08-22] MEDS: Famotidine 20 MG TAB PO SCH (20:30)
[2020-08-22] MEDS: ALPRAZolam 1 MG TAB PO SCH (20:31)
[2020-08-22] MEDS: Melatonin 3 MG TAB PO PRN (20:31)
[2020-08-23] MEDS: Morphine 2 MG/ML VIAL SLOW IVP PRN ×6 (00:41→22:00)
[2020-08-23] MEDS: Sodium Chloride 0.9% 1,000 ML IV SCH ×2 (04:41→17:08)
[2020-08-23] MEDS: Ondansetron PF 4 MG/2 ML Vial IVP PRN ×3 (04:43→21:57)
[2020-08-23] MEDS: Ketorolac Tromethamine 30 MG/ML VIAL IVP SCH ×4 (05:29→23:23)
[2020-08-23] MEDS: Levothyroxine Sodium 75 MCG TAB PO SCH (05:29)
[2020-08-23] MEDS: HYDROcodone/Acetaminophen 5/325 mg Tablet PO PRN ×3 (06:50→20:27)
[2020-08-23 06:52] LABS: #Eosinphils 0.3 thou/uL (0.0-0.7); #Lymphocytes 2.2 thou/uL (1.20-3.40); #Monocytes 0.7 thou/uL (0.11-0.59); #Neutrophils 6.4 thou/uL (1.40-6.50); %Basophils 0.4 % (0.0-1.0); %Lymphocytes 22.6 % (21.0-51.0); %Monocytes 7.6 % (0.0-10.0); %Neutrophils 66.4 % (42.0-75.0); Hemoglobin 8.4 g/dL (12.0-16.0); Mean Corpuscular HGB CONC 31.9 g/dL (32.0-36.0); Mean Corpuscular Hemoglobin 27.8 pg (27.0-31.0); Mean Corpuscular Volume 86.9 fL (78.0-98.0); Mean Platelet Volume 7.4 fL (7.4-10.4); Platelet Count 289 thou/uL (130-400); RBC Distribution Width 14.8 % (11.5-14.5); Red Blood Cell (RBC) Count 3.01 mill/uL (4.20-5.40); White Blood Cell (WBC) Count 9.6 thou/uL (4.8-10.8)
[2020-08-23 07:18] LABS: ALT (SGPT) 268 U/L (8-55); AST (SGOT) 75 U/L (5-34); Albumin 3.5 g/dL (3.5-5.0); Alkaline Phosphatase 120 U/L (40-110); Anion Gap 12 mmol/L (10-20); BUN (Urea Nitrogen) 10 mg/dL (7.0-18.7); Bilirubin, Total 0.5 mg/dL (0.2-1.2); Calc. Creatinine Clearance 177 mL/min (70-130); Carbon Dioxide 20 mmol/L (22-29); Chloride 110 mmol/L (98-107); Globulin 2.5 g/dL (2.4-3.5); Glucose 84 mg/dL (70-105); Lipase 74 U/L (8-78); Potassium 3.8 mmol/L (3.5-5.1); Sodium 138 mmol/L (136-145)
[2020-08-23] MEDS: Famotidine 20 MG TAB PO SCH ×2 (08:55→20:27)
[2020-08-23] MEDS: Amitriptyline HCl 25 MG TAB PO SCH (08:55)
[2020-08-23] MEDS: risperiDONE 1 MG TAB PO SCH (08:55)
--- NOTE | 2020-08-23 09:37 | PDOC.BPN ---
- Brief Progress Note Encounter Date: 08/23/20 Encounter Time: 09:36 Patient states that she is doing well this morning. Her pain is much improved. No nausea or vomiting. She is ready for surgery today. All of her questions have been answered. Plan-laparoscopic cholecystectomy-probable discharge home this afternoon
[2020-08-23] MEDS ORDERED: Bupivacaine PF 0.5% 30 ML VIAL ONE (09:58)
[2020-08-23] MEDS ORDERED: XYLOCAINE 2%-EPI 1:100,000 20 ML VIAL ONE (09:58)
[2020-08-23] MEDS ORDERED: Fentanyl 100 MCG/2 ML VIAL ONE ×2 (10:11→12:01)
[2020-08-23] MEDS ORDERED: Dexmedetomidine 200 MCG/2 ML VIAL ONE (10:11)
[2020-08-23] MEDS ORDERED: PACU-Morphine 4MG/ML VIAL SLOW IVP PRN (10:46)
[2020-08-23] MEDS ORDERED: Promethazine HCl 25 MG/ML VIAL IM PRN (10:46)
[2020-08-23] MEDS ORDERED: Promethazine HCl 25 MG/ML VIAL SLOW IVP PRN (10:46)
[2020-08-23] MEDS ORDERED: HYDROmorphone 2 MG/ML VIAL SLOW IVP PRN (10:46)
[2020-08-23] MEDS ORDERED: Ondansetron HCl/PF 4 MG/2 ML Vial IVP PRN (10:46)
[2020-08-23] MEDS ORDERED: Ketorolac Tromethamine 30 MG/ML VIAL ONE (10:57)
[2020-08-23] MEDS ORDERED: Glycopyrrolate 0.2 MG/ML 5 ML SYRINGE ONE (10:57)
[2020-08-23] MEDS ORDERED: PROPOFOL 200 MG/20 ML VIAL ONE (10:57)
[2020-08-23] MEDS ORDERED: Ondansetron PF 4 MG/2 ML Vial ONE (10:57)
[2020-08-23] MEDS ORDERED: Rocuronium Bromide 10 MG/ML (10ML VIAL) ONE (10:57)
[2020-08-23] MEDS ORDERED: Dexamethasone 20 MG/5 ML VIAL ONE (10:57)
[2020-08-23] MEDS ORDERED: Lidocaine 1% PF 5 ML VIAL ONE (10:57)
--- NOTE | 2020-08-23 11:05 | OP ---
DATE OF PROCEDURE: 08/22/2020 PREOPERATIVE DIAGNOSIS: Gallstone pancreatitis. DESCRIPTION OF PROCEDURE: After informed consent was obtained, the patient was placed in the left lateral decubitus position. Anesthesia was administered per the Anesthesia Department. Side-viewing endoscope was inserted into esophagus under direct visualization with ease and passed to the second portion of the duodenum with ease. A gastric sleeve was noted. The ampulla appeared normal in appearance. Tapered Tip cannula was inserted in the common bile duct and cholangiogram revealed no filling defects. The papillotome and scope were removed. ASSESSMENT: Normal endoscopic retrograde cholangiogram. RECOMMENDATIONS: Proceed with cholecystectomy. Job ID: [id number]
--- NOTE | 2020-08-23 11:38 | PDOC.OP ---
Operative Note - Operative Note Operative Note: Date of operation-23 August 2020 Preoperative diagnosis-gallstone pancreatitis Postoperative diagnosis-same Operation-[laparoscopic cholecystectomy] Specimen-[gallbladder] EBL-[minimal] Complications-[none] Sponge and needle count were correct x2 Indication for procedure-the patient is a 30-year-old female who presents for laparoscopic cholecystectomy secondary to gallstone pancreatitis. Conduct of the operation-after written preoperative informed consent, the duglas ent was taken to the operating room, placed in the supine position and intubated. The abdomen was prepared and draped in sterile fashion. A timeout was performed. An incision was made in the right subcostal margin and a 5 mm trocar direct optical entry technique was used to enter the abdomen. Pneumoperitoneum was established. The underlying viscera was inspected and there was no damage noted. A 10 mm was placed at the umbilicus and 2 additional 5 mm were placed under the right costal margins at the usual locations under direct visualization. The fundus of the gallbladder was grasped and retracted over the dome of the liver. The gallbladder appeared off white consistent with chronic cholecystitis. There is no significant fluid in the right upper quadrant. The infundibulum was grasped and retracted laterally. Dissection was carried out in the triangle of Calot until the critical view of safety was obtained. Clips were placed across the cystic duct and it was divided with the harmonic. The artery was divided with the harmonic and the gallbladder was removed from the gallbladder bed fossa. Specimen was placed in an Endo Catch bag and removed via the umbilicus. The right upper quadrant was inspected and there was no bleeding or bile staining noted. The trocar was removed at the umbilicus and a 0 Vicryl suture on a suture passer was used to close the fascial defect. The incisions were irrigated and closed with Monocryl and surgical skin glue. The patient was extubated and taken the postanesthesia care area in good condition having tolerated the procedure well.
[2020-08-23] MEDS ORDERED: HYDROcodone/Acetaminophen 5/325 mg Tablet PO PRN (15:43)
--- NOTE | 2020-08-23 15:57 | PDOC.DS.DS ---
Provider Date of Admission: 08/21/20 14:43 Admitting Provider: Vikas Green MD Primary Care Physician: NO PCP PROVIDER Course Hospital Course: 30-year-old female presented with gallstone pancreatitis Code(s): K85.10 - BILIARY ACUTE PANCREATITIS WITHOUT NECROSIS OR INFECTION Status: Acute (2) Cholelithiasis Code(s): K80.20 - CALCULUS OF GALLBLADDER W/O CHOLECYSTITIS W/O OBSTRUCTION Status: Acute (3) Hypothyroidism Code(s): E03.9 - HYPOTHYROIDISM, UNSPECIFIED Status: Chronic (4) Obesity (BMI 30-39.9) Code(s): E66.9 - OBESITY, UNSPECIFIED Status: Chronic (5) Tobacco abuse Code(s): Z72.0 - TOBACCO USE Status: Chronic Plan: Trend LFTs and lipase. Pain management with narcotics. Status post ERCP s/p laparoscopic cholecystectomy today, 7th post procedure she is doing well. will be discharged this evening with analgesic as needed. Follow-up with PCP in 1 week. Discharge time over 30 minutes. Lab Results: 08/23/20 05:45 08/23/20 05:45 Abnormal Lab Results - Last 48 hrs 08/22/20 05:23: Chloride 109 H, Carbon Dioxide 21 L, AST 178 H, ALT 374 H, Alkaline Phosphatase 138 H, Serum Total Protein 5.9 L, Albumin 3.4 L, Lipase 806 H 08/22/20 05:24: RBC 3.24 L, Hgb 9.1 L, Hct 28.3 L, RDW 15.0 H, MPV 7.1 L, Lymphocytes % 20.3 L 08/23/20 05:45: Chloride 110 H, Carbon Dioxide 20 L, AST 75 H, ALT 268 H, Linda line Phosphatase 120 H 08/23/20 05:45: RBC 3.01 L, Hgb 8.4 L, Hct 26.2 L, MCHC 31.9 L, RDW 14.8 H, Monocytes # 0.7 H Vitals: Vital Signs (12 hours) Temp Pulse Resp BP Pulse Ox 08/23/20 15:30 98.8 F 81 18 112/73 97 08/23/20 12:25 96.8 F L 91 16 106/56 L 100 08/23/20 09:08 98.4 F 93 18 128/82 97 08/23/20 08:55 97 08/23/20 07:15 98.3 F 87 18 119/80 97 08/23/20 04:00 97.4 F L 94 16 114/75 99 Weight Weight 200 lb Physical Exam: The patient was seen and examined on the day of discharge. Plan Prescriptions: HYDROcodone Bit/APAP 5/325 [[place]] 1 tab PO TID PRN #20 tab PRN Reason: Pain Home Medications: Medication Instructions Recorded Confirmed Type Amitriptyline HCl 25 mg PO DAILY 02/18/19 08/21/20 History Levothyroxine Sodium 75 mcg PO DAILY 02/18/19 08/21/20 History Omeprazole Magnesium [Prilosec] 10 mg PO DAILY 02/18/19 08/21/20 History Sertraline HCl [Zoloft] 100 mg PO HS 02/18/19 08/21/20 History risperiDONE [RisperDAL] 2 mg PO DAILY 02/18/19 08/21/20 History ALPRAZolam [Xanax] 2 mg PO HS 05/08/20 08/21/20 History Famotidine [Pepcid] 20 mg PO BID #60 tab 05/08/20 08/21/20 Rx Ferrous Sulfate 325 mg PO BID #60 tablet 05/08/20 08/21/20 Rx Nitrofurantoin Monohyd/M-Cryst 100 mg PO BID #10 cap 05/08/20 08/21/20 Rx [Macrobid] tiZANidine HCl [Tizanidine HCl] 4 mg PO BID 05/08/20 08/21/20 History HYDROcodone Bit/APAP 5/325 [[place]] 1 tab PO TID PRN #20 tab 08/23/20 Rx Allergies: ferric gluconate Allergy (Uncoded 05/08/20 12:26) Discharge Instructions:: Surgery is a stress on your body. Do not expect everything to return to "normal" as soon as your operation is over. It can take several weeks for your body to return to a sense of normalcy. Diet: It is not unusual to have a decreased appetite for several days or weeks after surgery. Initially, this is usually a side effect of the medication that was used during your procedure to keep you comfortable. Unless I tell you differently, you may consume what ever you feel like, when you feel up to it. Activity: If you have incisions on your abdomen, in general, do not lift anything over 25 pounds for the next 2 or 3 weeks. This is a general guideline and not an absolute. Please use commonsense. You may, however, do all the walking you want, to include stairs, if able. Driving is an individual issue. Some patients recover faster than others. My criteria for driving is that you are off your narcotic pain medicine and you are ambulating without difficulty. Many people find themselves needing to take a nap in the early recovery. Even very energetic people will feel rundown, typically in the afternoons. This is normal. Listen to your body. Bowel movements: Constipation related issues are the most common postoperative questions I receive. Do not expect to be back on a normal schedule for almost a week. The medication used to keep you comfortable during surgery slows down your colon. If you are feeling uncomfortable, you may go to a local pharmacy and purchase [id number] laxatives as you see fit. A diet with plenty of fiber and water will help get you back to normal. Incisions: If you have surgical skin glue over your incision(s), you may shower as soon as you like. Do not let the water beat down on the incisions or scrub the area. Let soap and water flow over the incision(s). Do not soak underwater for at least 10 days. The glue will fall off when it is ready, typically in 2 to 3 weeks. You do not need to place Neosporin or other "antibacterial" ointments/solutions on the area. A little redness right around the incision is normal, but redness that starts to spread away from the incision area (typically 3-5 days after surgery) combined with puffiness and increased tenderness should prompt you to return to the office. Pain control: I typically send patients home with a prescription. The idea is to make your pain manageable. It is impossible to "take all the pain away." After a few days, you should start transitioning from your narcotic pain medicine to Motrin or Tylenol. If you have any questions, please feel free to call the office at [phone]. Ask for my nurse, Floridalma. If you do not already have an appointment, please call and ask for a follow-up in [approximately [address] Champion Activity:: Activity as Tolerated Nourishment:: Regular Diet Referrals: Edouard Champion MD [Active] - 14 Days (CALL OFFICE TO SCHEDULE/CONFIRM FOLLOW- UP APPOINTMENT.) Disposition: HOME Quality CORE MEASURES:: N/A
[2020-08-23] MEDS: Melatonin 3 MG TAB PO PRN (20:27)
[2020-08-23] MEDS: ALPRAZolam 1 MG TAB PO SCH (20:27)
[2020-08-24] MEDS: HYDROcodone/Acetaminophen 5/325 mg Tablet PO PRN ×3 (00:32→09:16)
[2020-08-24] MEDS: Sodium Chloride 0.9% 1,000 ML IV SCH (00:33)
[2020-08-24] MEDS: Morphine 2 MG/ML VIAL SLOW IVP PRN ×3 (02:16→10:52)
[2020-08-24] MEDS: Ondansetron PF 4 MG/2 ML Vial IVP PRN (03:36)
[2020-08-24] MEDS: Ketorolac Tromethamine 30 MG/ML VIAL IVP SCH (05:15)
[2020-08-24] MEDS: Levothyroxine Sodium 75 MCG TAB PO SCH (05:15)
[2020-08-24 07:25] LABS: #Eosinphils 0.1 thou/uL (0.0-0.7); #Lymphocytes 2.1 thou/uL (1.20-3.40); #Monocytes 0.6 thou/uL (0.11-0.59); #Neutrophils 5.6 thou/uL (1.40-6.50); %Basophils 0.3 % (0.0-1.0); %Eosinophils 0.7 % (0.0-10.0); %Lymphocytes 25.1 % (21.0-51.0); %Neutrophils 66.9 % (42.0-75.0); Hemoglobin 8.7 g/dL (12.0-16.0); Mean Corpuscular HGB CONC 32.4 g/dL (32.0-36.0); Mean Corpuscular Hemoglobin 28.7 pg (27.0-31.0); Mean Corpuscular Volume 88.4 fL (78.0-98.0); Mean Platelet Volume 7.3 fL (7.4-10.4); Platelet Count 311 thou/uL (130-400); RBC Distribution Width 15.1 % (11.5-14.5); Red Blood Cell (RBC) Count 3.04 mill/uL (4.20-5.40); White Blood Cell (WBC) Count 8.3 thou/uL (4.8-10.8)
[2020-08-24 07:46] LABS: ALT (SGPT) 210 U/L (8-55); AST (SGOT) 48 U/L (5-34); Albumin 3.8 g/dL (3.5-5.0); Alkaline Phosphatase 113 U/L (40-110); Anion Gap 13 mmol/L (10-20); BUN (Urea Nitrogen) 6 mg/dL (7.0-18.7); Bilirubin, Total 0.4 mg/dL (0.2-1.2); Calc. Creatinine Clearance 170 mL/min (70-130); Calcium 8.2 mg/dL (7.8-10.44); Carbon Dioxide 23 mmol/L (22-29); Chloride 109 mmol/L (98-107); Globulin 2.8 g/dL (2.4-3.5); Glucose 94 mg/dL (70-105); Lipase 43 U/L (8-78); Potassium 3.8 mmol/L (3.5-5.1); Protein, Total 6.6 g/dL (6.0-8.3); Sodium 141 mmol/L (136-145)
[2020-08-24] MEDS: Amitriptyline HCl 25 MG TAB PO SCH (08:08)
[2020-08-24] MEDS: risperiDONE 1 MG TAB PO SCH (08:08)
[2020-08-24] MEDS: Famotidine 20 MG TAB PO SCH (08:08)
[2020-08-24 08:18] VITALS: BP 141/90; TEMP 99.1
== END 2020-08-24 11:05 | disposition home or self-care (01) | DRG 418 ==
LOC: ERS 10:05 → SURG A 14:43
PROVIDERS: ADMIT Internal Medicine; ATTEND Internal Medicine
PROC: 0FJB8ZZ Inspection of Hepatobiliary Duct, Via Natural or Artificial Opening Endoscopic (ICD-10-PCS; 2020-08-22)
PROC: 0FT44ZZ Resection of Gallbladder, Percutaneous Endoscopic Approach (ICD-10-PCS; principal; 2020-08-23)
DX: K85.10 Biliary acute pancreatitis without necrosis or infection (principal); K80.10 Calculus of gallbladder with chronic cholecystitis without obstruction; G89.29 Other chronic pain; M54.5 Low back pain; E66.9 Obesity, unspecified; E03.9 Hypothyroidism, unspecified; F17.210 Nicotine dependence, cigarettes, uncomplicated; Z20.822 Contact with and (suspected) exposure to COVID-19; Z98.84 Bariatric surgery status; Z71.6 Tobacco abuse counseling; Z68.36 Body mass index [BMI] 36.0-36.9, adult
CPT/HCPCS: 36415; 74330; 76705; 80053; 83690; 84484; 84703; 85025; 87635; 88304; 93005; 96374; 96375; C9113; J0690; J1100; J1200; J1610; J1885; J2270; J2405; J2704; J3010; S0020; U0003; U0005

== ENCOUNTER 2020-09-06 22:35 | Emergency (ER) | payer SELFPAY ==
[~2020-09-06 22:35] MED LIST: Iopamidol-370 76% 500 ML 1 ML ONE
[2020-09-06 23:16] LABS: #Basophils 0.1 thou/uL (0.0-0.2); #Eosinphils 0.5 thou/uL (0.0-0.7); #Lymphocytes 2.9 thou/uL (1.20-3.40); #Monocytes 0.5 thou/uL (0.11-0.59); #Neutrophils 3.6 thou/uL (1.40-6.50); %Basophils 1.6 % (0.0-1.0); %Eosinophils 6.7 % (0.0-10.0); %Lymphocytes 38.3 % (21.0-51.0); %Monocytes 6.4 % (0.0-10.0); Hemoglobin 9.4 g/dL (12.0-16.0); Mean Corpuscular Hemoglobin 26.9 pg (27.0-31.0); Mean Platelet Volume 7.2 fL (7.4-10.4); Platelet Count 377 thou/uL (130-400); RBC Distribution Width 14.7 % (11.5-14.5); Red Blood Cell (RBC) Count 3.49 mill/uL (4.20-5.40); White Blood Cell (WBC) Count 7.6 thou/uL (4.8-10.8)
[2020-09-06 23:19] LABS: BHCG - Serum Negative (NEGATIVE); Pregs Control Background? CLEAR/WHITE (CLR/WHITE); Pregs Control Bar Appear? YES (CONTROL BAR)
[2020-09-06 23:34] LABS: ALT (SGPT) 15 U/L (8-55); AST (SGOT) 18 U/L (5-34); Alkaline Phosphatase 71 U/L (40-110); Anion Gap 13 mmol/L (10-20); BUN (Urea Nitrogen) 13 mg/dL (7.0-18.7); Bilirubin, Total 0.3 mg/dL (0.2-1.2); Calc. Creatinine Clearance 0 mL/min (70-130); Calcium 8.4 mg/dL (7.8-10.44); Carbon Dioxide 21 mmol/L (22-29); Chloride 110 mmol/L (98-107); Globulin 2.6 g/dL (2.4-3.5); Glucose 81 mg/dL (70-105); Lipase 40 U/L (8-78); Potassium 4.1 mmol/L (3.5-5.1); Protein, Total 6.6 g/dL (6.0-8.3); Sodium 140 mmol/L (136-145)
[2020-09-06] MEDS ORDERED: Ketorolac Tromethamine 30 MG/ML VIAL ONE (23:36)
[2020-09-07 00:13] LABS: Bilirubin Negative (Negative); Blood, Urine Negative (Negative); Clarity Clear (Clear); Glucose, Urine (Dipstick) Normal (Negative); Ketone, Urine Negative (Negative); Leukocyte Negative Leu/uL (Negative); Nitrite Negative (Negative); Protein, Urine (Dipstick) Negative (Neg-Trace); Specific Gravity, Urine 1.021 (1.002-1.036); Urobilinogen Normal mg/dL (Less than 2)
[2020-09-07] MEDS ORDERED: Ondansetron PF 4 MG/2 ML Vial ONE (00:51)
[2020-09-07] MEDS ORDERED: Dicyclomine 20 MG TAB ONE (01:29)
--- NOTE | 2020-09-07 07:52 | CT ---
PRELIMINARY REPORT/[facility]/EMERGENCY AFTER HOURS PROCEDURE: EXAM: CT Abdomen and Pelvis with Intravenous Contrast CLINICAL HISTORY: // 30 year old female presents to the ED today with complaints of RLQ abdominal pain associated with N/V/D. She states she has felt the pain since her Laparoscopic cholecystectomy 2 weeks ago but has be come unmanageable as of recent. She states the pain is felt at the umbilicus and radiates to the RLQ. She also states she feels bloated. She admits to night sweats, fatigue, and intermittent headaches. Denies chest pain, SOB, or unstable gait. TECHNIQUE: Axial computed tomography images of the abdomen and pelvis with intravenous contrast. CONTRAST: With; ISOVUE 370,90mL COMPARISON: None provided. FINDINGS: LUNG BASES: No basilar airspace consolidation or pleural effusion. LIVER: Unremarkable. GALLBLADDER AND BILE DUCTS: The gallbladder is absent. No evidence of dilatation of the biliary ductal system. No fluid in this region.. PANCREAS: Unremarkable. SPLEEN: Unremarkable. ADRENAL GLANDS: Unremarkable. KIDNEYS, URETERS, AND BLADDER: Unremarkable. No hydronephrosis or nephrolithiasis. No ureteral or bladder calculi. STOMACH AND BOWEL: No obstruction. No wall thickening. No CT evidence of colitis or acute diverticulitis. There has bee n some surgery in the epigastric region APPENDIX: No CT evidence for appendicitis. The appendix is normal. PERITONEUM: No free fluid. No free air. LYMPH NODES: No lymphadenopathy. REPRODUCTIVE: Unremarkable as visualized. VASCULATURE: No aortic aneurysm. BONES: No fracture or suspicious osseous abnormality. Moderate degenerative changes of the lower spine. ABDOMINAL WALL AND SOFT TISSUES: Unremarkable. IMPRESSION: There is no evidence of intestinal or urinary tract obstruction. No ileus or enteritis. Previous cholecystectomy.. ELECTRONICALLY SIGNED BY: Stacey Austin DO Sep 07, 2020 12:47:01 AM [employer] This report is intended for review by the ordering physician only, in accordance of law. If you recei ve this report in error, please call [facility] at [phone]. FINAL REPORT ABDOMEN CT WITH CONTRAST PELVIC CT WITH CONTRAST: COMPARISON: 05/07/2020. HISTORY: Right lower quadrant pain. Recent laparoscopy cholecystectomy 2 weeks ago. FINDINGS: ABDOMEN CT: Lung bases are clear. Normal heart size. No significant pericardial fluid. Normal caliber aorta. No aortic fat stranding. Portal vein is patent. Surgically absent gallbladder. Liver, spleen, pancreas, and adrenal glands have appropriate attenuation and enhancement. No gastrohepatic, retrocrural, or periportal lymphadenopathy No mesenteric mass, lymphadenopathy, free air, or free fluid. There is an umbilical hernia containing mesenteric fat. Symmetric enhancement of the kidneys. No evidence of obstructive uropathy. Limited evaluation of the alimentary canal by the absence of oral contrast. Previous bariatric surgic al changes are noted. No evidence of a small bowel obstruction. Normal ileocecal junction. Scattered fecal material in a no ndistended, nondilated colon. Occasional diverticulum of the sigmoid colon. No evidence of diverticul itis. Normal caliber air-filled appendix. PELVIC CT: Uterus and right adnexal structure are grossly unremarkable. In the left adnexa, there appears to be a septated, incompletely evaluated, 2.7 cm cyst. No pelvic mass, lymphadenopathy, free air, or free fluid. No lytic or blastic lesions in the osseous structures. IMPRESSION: 1. This report is in agreement with the initial report by [facility]. 2. No evidence of bowel obstruction. Normal caliber appendix. 3. Questionable septated cyst associated with the left ovary. Follow-up ultrasound in 6-8 weeks biju mmended to ensure resolution. CODE T. POS: PPP
== END 2020-09-07 01:34 | disposition home or self-care (01) ==
LOC: ERS 22:35
DX: R10.31 Right lower quadrant pain (principal); R11.2 Nausea with vomiting, unspecified; E03.9 Hypothyroidism, unspecified; F17.210 Nicotine dependence, cigarettes, uncomplicated
CPT/HCPCS: 36415; 74177; 80053; 81003; 83690; 84703; 85025; 96374; 96375; J1885; J2405; Q9967

== ENCOUNTER 2020-11-27 18:17 | Emergency (ER) | payer MEDICAID, SELFPAY ==
[2020-11-27 18:46] LABS: #Basophils 0.1 thou/uL (0.0-0.2); #Eosinphils 0.8 thou/uL (0.0-0.7); #Monocytes 0.9 thou/uL (0.11-0.59); %Basophils 1.2 % (0.0-1.0); %Eosinophils 8.4 % (0.0-10.0); %Lymphocytes 20.1 % (21.0-51.0); %Monocytes 8.9 % (0.0-10.0); %Neutrophils 61.4 % (42.0-75.0); Hemoglobin 9.9 g/dL (12.0-16.0); Mean Corpuscular HGB CONC 31.7 g/dL (32.0-36.0); Mean Corpuscular Hemoglobin 24.9 pg (27.0-31.0); Mean Corpuscular Volume 78.6 fL (78.0-98.0); Mean Platelet Volume 7.5 fL (7.4-10.4); Platelet Count 362 thou/uL (130-400); RBC Distribution Width 15.4 % (11.5-14.5); Red Blood Cell (RBC) Count 3.99 mill/uL (4.20-5.40); White Blood Cell (WBC) Count 9.8 thou/uL (4.8-10.8)
[2020-11-27 19:13] LABS: ALT (SGPT) 17 U/L (8-55); AST (SGOT) 39 U/L (5-34); Albumin 4.1 g/dL (3.5-5.0); Alkaline Phosphatase 72 U/L (40-110); Anion Gap 14 mmol/L (10-20); BUN (Urea Nitrogen) 15 mg/dL (7.0-18.7); Bilirubin, Total 0.3 mg/dL (0.2-1.2); Calc. Creatinine Clearance 0 mL/min (70-130); Calcium 9.4 mg/dL (7.8-10.44); Carbon Dioxide 24 mmol/L (22-29); Chloride 109 mmol/L (98-107); Globulin 3.3 g/dL (2.4-3.5); Glucose 91 mg/dL (70-105); Potassium 3.8 mmol/L (3.5-5.1); Protein, Total 7.4 g/dL (6.0-8.3); Sodium 143 mmol/L (136-145)
[2020-11-27 19:49] LABS: Pregnancy Test - Urine (BHCG) Negative (Negative)
[2020-11-27 19:50] LABS: Bacteria/HPF None Seen HPF (None Seen); Bilirubin Negative (Negative); Blood, Urine Negative (Negative); Clarity Clear (Clear); Glucose, Urine (Dipstick) Normal (Negative); Ketone, Urine Negative (Negative); Leukocyte Negative Leu/uL (Negative); Nitrite Negative (Negative); Pregu Control Background? CLEAR/WHITE (CLR/WHITE); Pregu Control Bar Appear? YES (CONTROL BAR); Protein, Urine (Dipstick) 70 mg/dL (Neg-Trace); RBC/HPF 0-3 HPF (0-3); Specific Gravity 1.047 (1.002-1.036); Urobilinogen Normal mg/dL (Less than 2); WBC/HPF 0-3 HPF (0-3)
[2020-11-27 19:52] LABS: Specific Gravity, Urine 1.047 (1.002-1.036)
[2020-11-27] MEDS ORDERED: Ketorolac Tromethamine 30 MG/ML VIAL ONE (20:21)
[2020-11-27] MEDS ORDERED: Morphine 4 MG/ML VIAL ONE (20:21)
[2020-11-27] MEDS ORDERED: Ondansetron PF 4 MG/2 ML Vial ONE (20:21)
[2020-11-27] MEDS ORDERED: HYDROmorphone 0.5 MG/0.5 ML SYRINGE ONE (21:33)
== END 2020-11-27 22:11 | disposition home or self-care (01) ==
LOC: ERS 18:17
DX: M54.5 Low back pain (principal); E03.9 Hypothyroidism, unspecified; J45.909 Unspecified asthma, uncomplicated; D64.9 Anemia, unspecified; F17.210 Nicotine dependence, cigarettes, uncomplicated
CPT/HCPCS: 36415; 74176; 80053; 81003; 81015; 81025; 85025; 96374; 96375; J1170; J1885; J2270; J2405

== ENCOUNTER 2021-03-15 13:08 | Emergency (ER) | payer OTHER, MEDICAID ==
[2021-03-15 19:57] LABS: SARS-CoV-2 PCR by NAA DETECTED (NotDetected)
== END 2021-03-15 14:45 | disposition home or self-care (01) ==
LOC: ERS 13:08
DX: U07.1 COVID-19 (principal); E03.9 Hypothyroidism, unspecified; F17.210 Nicotine dependence, cigarettes, uncomplicated
CPT/HCPCS: 99283; U0003; U0005

== ENCOUNTER 2022-01-10 07:34 | Outpatient (CLI) | payer OTHER | END 2022-01-10 07:35 | disposition home or self-care (01) | LOC: SCSMRI 07:34 | PROVIDERS: ATTEND General Practice | DX: M47.26 Other spondylosis with radiculopathy, lumbar region (principal); M51.16 Intervertebral disc disorders with radiculopathy, lumbar region; M48.061 Spinal stenosis, lumbar region without neurogenic claudication | CPT/HCPCS: 72148 ==

== ENCOUNTER 2022-05-19 10:40 | Outpatient (CLI) | payer OTHER | END 2022-05-19 10:41 | disposition home or self-care (01) | LOC: TBSIIMAG 10:40 | PROVIDERS: ATTEND Neurological Surgery | DX: M54.6 Pain in thoracic spine (principal); M47.814 Spondylosis without myelopathy or radiculopathy, thoracic region | CPT/HCPCS: 72070 ==

== ENCOUNTER 2022-06-15 07:15 | Observation (INO) | payer OTHER ==
[2022-06-15] MEDS ORDERED: fentaNYL PF 100 MCG/2 ML SYRINGE ONE ×2 (09:09→12:20)
[2022-06-15] MEDS ORDERED: HYDROmorphone 0.5 MG/0.5 ML SYRINGE ONE ×9 (09:10→16:18)
[2022-06-15] MEDS ORDERED: EPINEPHrine 1 MG/ML AMP ONE (09:18)
[2022-06-15] MEDS ORDERED: Lidocaine 1% (PF) 30 ML VIAL ONE (09:18)
[2022-06-15] MEDS ORDERED: Thrombin 5000 UNITS/5 ML VIAL ONE (09:18)
[2022-06-15] MEDS ORDERED: Midazolam HCl 2 mg/2 ml Vial ONE ×2 (10:18→14:55)
[2022-06-15] MEDS ORDERED: CEFAZOLIN 2 GM VIAL ONE (10:19)
[2022-06-15] MEDS ORDERED: Sodium Chloride 0.9% 100 ML ONE (10:19)
[2022-06-15] MEDS ORDERED: Glycopyrrolate 0.2 MG/ML 5 ML SYRINGE ONE (10:33)
[2022-06-15] MEDS ORDERED: Ondansetron PF 4 MG/2 ML Vial ONE (10:33)
[2022-06-15] MEDS ORDERED: PROPOFOL 200 MG/20 ML VIAL ONE (10:33)
[2022-06-15] MEDS ORDERED: Phenylephrine 10 MG/ML VIAL ONE (10:33)
[2022-06-15] MEDS ORDERED: Succinylcholine 200 MG/10 ml SYRINGE FS ONE (10:33)
[2022-06-15] MEDS ORDERED: ePHEDrine 50 MG/ML VIAL ONE (10:33)
[2022-06-15] MEDS ORDERED: NEOSTIGMINE 3 MG/3 ML SYR 3 MG/3 ML SYRINGE ONE (10:33)
[2022-06-15] MEDS ORDERED: Dexamethasone 20 MG/5 ML VIAL ONE (10:33)
[2022-06-15] MEDS ORDERED: Rocuronium Bromide 10 MG/ML (10ML VIAL) ONE (10:33)
[2022-06-15] MEDS ORDERED: FENTANYL 50 MCG/ML 1 ML VIAL ONE ×5 (12:46→19:20)
[2022-06-15] MEDS ORDERED: Meperidine HCl/PF 25 MG/ML VIAL ONE (12:46)
[2022-06-15] MEDS ORDERED: Promethazine HCl 25 MG/ML VIAL ONE (13:41)
[2022-06-15] MEDS ORDERED: Ketorolac Tromethamine 30 MG/ML VIAL ONE (15:52)
[2022-06-15] MEDS ORDERED: diphenhydrAMINE 50 MG/ML VIAL IVP PRN (16:55)
[2022-06-15] MEDS ORDERED: Ondansetron PF 4 MG/2 ML Vial IVP PRN (16:55)
[2022-06-15] MEDS ORDERED: HYDROcodone/Acetaminophen 10/325 mg Tablet PO PRN (16:55)
[2022-06-15] MEDS: Morphine 4 MG/ML VIAL SLOW IVP PRN ×3 (20:31→23:37)
[2022-06-15] MEDS: Cyclobenzaprine 10 MG TAB PO PRN (20:32)
[2022-06-15] MEDS: CEFAZOLIN 2 GM in Sodium Chloride 0.9% 100 ML IVPB SCH (20:38)
[2022-06-15] MEDS: Ketorolac Tromethamine 30 MG/ML VIAL IVP SCH ×2 (20:39→21:36)
[2022-06-15] MEDS: Sodium Chloride 0.9% 1,000 ML IV SCH (20:40)
[2022-06-15] MEDS: HYDROcodone/Acetaminophen 10/325 mg Tablet PO PRN (21:29)
[2022-06-16] MEDS: Morphine 4 MG/ML VIAL SLOW IVP PRN ×3 (01:37→08:52)
[2022-06-16 02:52] VITALS: BMI 36.6
[2022-06-16] MEDS: Ketorolac Tromethamine 30 MG/ML VIAL IVP SCH ×2 (04:54→11:39)
[2022-06-16] MEDS: CEFAZOLIN 2 GM in Sodium Chloride 0.9% 100 ML IVPB SCH (04:55)
[2022-06-16] MEDS: Sodium Chloride 0.9% 1,000 ML IV SCH (06:50)
[2022-06-16] MEDS: HYDROcodone/Acetaminophen 10/325 mg Tablet PO PRN ×3 (07:05→15:17)
[2022-06-16] MEDS: Cyclobenzaprine 10 MG TAB PO PRN (08:50)
[2022-06-16] MEDS ORDERED: Levothyroxine Sodium 75 MCG TAB PO SCH (09:00)
[2022-06-16] MEDS ORDERED: Cholecalciferol 1,000 UNITS (25 MCG) TAB PO SCH (09:00)
[2022-06-16] MEDS ORDERED: Ferrous Sulfate 325 MG TAB PO SCH (09:00)
[2022-06-16 15:45] VITALS: BP 148/89; TEMP 98.5
== END 2022-06-16 16:30 | disposition home or self-care (01) ==
LOC: SDC 07:15 → SURG B 20:10
PROVIDERS: ADMIT Neurological Surgery; ATTEND Neurological Surgery
PROC: 01NB0ZZ Release Lumbar Nerve, Open Approach (ICD-10-PCS; principal; 2022-06-15)
PROC: 01NR0ZZ Release Sacral Nerve, Open Approach (ICD-10-PCS; 2022-06-15)
DX: M48.062 Spinal stenosis, lumbar region with neurogenic claudication (principal); M51.16 Intervertebral disc disorders with radiculopathy, lumbar region; M47.26 Other spondylosis with radiculopathy, lumbar region; Z79.890 Hormone replacement therapy; Z79.899 Other long term (current) drug therapy; Z88.8 Allergy status to other drugs, medicaments and biological substances; Z98.84 Bariatric surgery status
CPT/HCPCS: 96374; 96375; 96376; G0378; J0171; J1100; J1170; J1885; J2001; J2175; J2250; J2270; J2370; J2405; J2550; J2704; J3010; J3490; J7050

== ENCOUNTER 2022-08-18 08:32 | Emergency (ER) | payer OTHER ==
[2022-08-18] MEDS ORDERED: HYDROcodone/Acetaminophen 5/325 mg Tablet ONE (09:24)
[2022-08-18 09:49] LABS: ALT (SGPT) 25 U/L (8-55); AST (SGOT) 21 U/L (5-34); Albumin 3.9 g/dL (3.5-5.0); Alkaline Phosphatase 128 U/L (40-110); Anion Gap 15 mmol/L (10-20); BUN (Urea Nitrogen) 16 mg/dL (7.0-18.7); Bilirubin, Total 0.2 mg/dL (0.2-1.2); CRP (Inflammatory) Less than 0.50 mg/dL (= or < 0.5); Calc. Creatinine Clearance 0 mL/min (70-130); Calcium 9.6 mg/dL (7.8-10.44); Carbon Dioxide 21 mmol/L (22-29); Chloride 105 mmol/L (98-107); Estimated GFR 104; Globulin 3.8 g/dL (2.4-3.5); Glucose 121 mg/dL (70-105); Potassium 4.7 mmol/L (3.5-5.1); Protein, Total 7.7 g/dL (6.0-8.3); Sodium 136 mmol/L (136-145)
[2022-08-18 10:11] LABS: Hemoglobin 12.6 g/dL (12.0-16.0); Mean Corpuscular HGB CONC 32.1 g/dL (32.0-36.0); Mean Corpuscular Hemoglobin 27.4 pg (27.0-31.0); Mean Corpuscular Volume 85.2 fl (78.0-98.0); Mean Platelet Volume 8.1 fL (7.4-10.4); Platelet Count 293 10x3/uL (130-400); RBC Distribution Width 16.4 % (11.5-14.5); Red Blood Cell (RBC) Count 4.61 mill/uL (4.20-5.40)
[2022-08-18 10:12] LABS: BHCG - Serum Negative (NEGATIVE); Pregs Control Background? CLEAR/WHITE (CLR/WHITE); Pregs Control Bar Appear? YES (CONTROL BAR)
[2022-08-18] MEDS ORDERED: Diazepam 5 MG TAB ONE (10:26)
[2022-08-18 10:42] LABS: Band 1 % (5-11); Eosinophils 1 % (0-10); Lymphocytes 24 % (21-51); MDiff Complete? YES; Monocytes 6 % (0-10); Neutrophil 67 % (42-75); Platelet Morphology Comment Appears Adequate; RBC Morphology Normal
== END 2022-08-18 12:15 | disposition home or self-care (01) ==
LOC: ERS 08:32
DX: M54.50 Low back pain, unspecified (principal); M54.6 Pain in thoracic spine; I10 Essential (primary) hypertension; E03.9 Hypothyroidism, unspecified; Z87.891 Personal history of nicotine dependence
CPT/HCPCS: 36415; 80053; 84703; 85025; 85652; 86140; 93005

== ENCOUNTER 2022-11-01 13:08 | Emergency (ER) | payer OTHER ==
[2022-11-01 15:06] LABS: #Basophils 0.1 thou/uL (0.0-0.2); #Eosinphils 0.5 thou/uL (0.0-0.7); #Lymphocytes 2.4 thou/uL (1.20-3.40); #Monocytes 0.5 thou/uL (0.11-0.59); #Neutrophils 5.2 thou/uL (1.40-6.50); %Basophils 0.7 % (0.0-1.0); %Eosinophils 5.4 % (0.0-10.0); %Lymphocytes 28.1 % (21.0-51.0); %Monocytes 5.6 % (0.0-10.0); %Neutrophils 60.2 % (42.0-75.0); Hemoglobin 12.5 g/dL (12.0-16.0); Mean Corpuscular HGB CONC 33.4 g/dL (32.0-36.0); Mean Corpuscular Hemoglobin 28.5 pg (27.0-31.0); Mean Corpuscular Volume 85.4 fl (78.0-98.0); Mean Platelet Volume 7.6 fL (7.4-10.4); Platelet Count 279 10x3/uL (130-400); RBC Distribution Width 14.8 % (11.5-14.5); Red Blood Cell (RBC) Count 4.37 mill/uL (4.20-5.40); White Blood Cell (WBC) Count 8.6 10x3/uL (4.8-10.8)
[2022-11-01 15:12] LABS: BHCG - Serum Negative (NEGATIVE); Pregs Control Background? CLEAR/WHITE (CLR/WHITE); Pregs Control Bar Appear? YES (CONTROL BAR)
[2022-11-01 15:35] LABS: Bilirubin Negative (Negative); Blood, Urine Negative (Negative); Clarity Clear (Clear); Glucose, Urine (Dipstick) Normal (Negative); Ketone, Urine Negative (Negative); Leukocyte Negative Leu/uL (Negative); Nitrite Negative (Negative); Protein, Urine (Dipstick) Negative (Neg-Trace); Urobilinogen Normal mg/dL (Less than 2)
[2022-11-01] MEDS ORDERED: predniSONE 20 MG TAB ONE (15:47)
[2022-11-01] MEDS ORDERED: HYDROcodone/Acetaminophen 5/325 mg Tablet ONE (15:47)
[2022-11-01 16:18] LABS: ALT (SGPT) 15 U/L (8-55); AST (SGOT) 29 U/L (5-34); Alkaline Phosphatase 108 U/L (40-110); Anion Gap 15 mmol/L (10-20); BUN (Urea Nitrogen) 13 mg/dL (7.0-18.7); Bilirubin, Total Less than 0.2 mg/dL (0.2-1.2); Calc. Creatinine Clearance 0 mL/min (70-130); Calcium 8.9 mg/dL (7.8-10.44); Carbon Dioxide 18 mmol/L (22-29); Chloride 109 mmol/L (98-107); Estimated GFR 103; Globulin 3.8 g/dL (2.4-3.5); Glucose 100 mg/dL (70-105); Potassium 4.8 mmol/L (3.5-5.1); Protein, Total 7.8 g/dL (6.0-8.3); Sodium 137 mmol/L (136-145)
== END 2022-11-01 16:02 | disposition home or self-care (01) ==
LOC: ERS 13:08
DX: M54.50 Low back pain, unspecified (principal); G89.4 Chronic pain syndrome; I10 Essential (primary) hypertension; E03.9 Hypothyroidism, unspecified; Z87.891 Personal history of nicotine dependence
CPT/HCPCS: 36415; 80053; 81003; 84703; 85025; 85652; 86140; J7512

== ENCOUNTER 2022-11-01 21:26 | Emergency (ER) | payer OTHER ==
[2022-11-01] MEDS ORDERED: Orphenadrine Citrate 60 MG/2 ML VIAL ONE (22:58)
[2022-11-01] MEDS ORDERED: Diazepam 5 MG TAB ONE (22:59)
[2022-11-02] MEDS ORDERED: HYDROcodone/Acetaminophen 5/325 mg Tablet ONE (00:37)
== END 2022-11-02 00:44 | disposition home or self-care (01) ==
LOC: ERS 21:26
DX: M54.50 Low back pain, unspecified (principal); I10 Essential (primary) hypertension; E03.9 Hypothyroidism, unspecified; J45.909 Unspecified asthma, uncomplicated; Z87.891 Personal history of nicotine dependence
CPT/HCPCS: 36415; 80053; 81003; 84703; 85025; 85652; 86140; 96372; 99283; J2360; J7512

== ENCOUNTER 2022-11-04 08:25 | Outpatient (CLI) | payer OTHER | END 2022-11-04 08:26 | disposition home or self-care (01) | LOC: TBSIIMAG 08:25 | PROVIDERS: ATTEND Neurological Surgery | DX: M54.16 Radiculopathy, lumbar region (principal); M48.061 Spinal stenosis, lumbar region without neurogenic claudication; M48.07 Spinal stenosis, lumbosacral region; M48.05 Spinal stenosis, thoracolumbar region | CPT/HCPCS: 72148 ==

== ENCOUNTER 2022-11-25 09:29 | Outpatient (CLI) | payer OTHER | END 2022-11-25 09:30 | disposition home or self-care (01) | LOC: TBSIIMAG 09:29 | PROVIDERS: ATTEND Neurological Surgery | DX: M47.12 Other spondylosis with myelopathy, cervical region (principal); M54.6 Pain in thoracic spine; M51.34 Other intervertebral disc degeneration, thoracic region; M51.24 Other intervertebral disc displacement, thoracic region; M50.023 Cervical disc disorder at C6-C7 level with myelopathy; M50.022 Cervical disc disorder at C5-C6 level with myelopathy | CPT/HCPCS: 72141; 72146 ==

== ENCOUNTER 2023-02-10 15:03 | Emergency (ER) | payer OTHER ==
[2023-02-10 15:51] LABS: Hemoglobin 9.3 g/dL (12.0-16.0); Mean Corpuscular HGB CONC 33.7 g/dL (32.0-36.0); Mean Corpuscular Hemoglobin 29.3 pg (27.0-31.0); Mean Corpuscular Volume 87.1 fl (78.0-98.0); Mean Platelet Volume 9.8 fL (7.4-10.4); Platelet Count 266 10x3/uL (130-400); RBC Distribution Width 17.6 % (11.5-14.5); Red Blood Cell (RBC) Count 3.17 mill/uL (4.20-5.40); White Blood Cell (WBC) Count 12.4 10x3/uL (4.8-10.8)
[2023-02-10 16:04] LABS: BHCG - Serum Negative (NEGATIVE); Pregs Control Background? CLEAR/WHITE (CLR/WHITE); Pregs Control Bar Appear? YES (CONTROL BAR)
[2023-02-10 16:11] LABS: Delete Auto Diff?? YES; Manual Diff?? YES
[2023-02-10 16:20] LABS: ALT (SGPT) 44 U/L (8-55); AST (SGOT) 26 U/L (5-34); Albumin 3.2 g/dL (3.5-5.0); Alkaline Phosphatase 125 U/L (40-110); Anion Gap 13 mmol/L (10-20); BUN (Urea Nitrogen) 21 mg/dL (7.0-18.7); Bilirubin, Total Less than 0.2 mg/dL (0.2-1.2); Calc. Creatinine Clearance 0 mL/min (70-130); Calcium 7.6 mg/dL (7.8-10.44); Carbon Dioxide 22 mmol/L (22-29); Chloride 106 mmol/L (98-107); Estimated GFR 82; Globulin 2.3 g/dL (2.4-3.5); Glucose 98 mg/dL (70-105); Potassium 2.7 mmol/L (3.5-5.1); Protein, Total 5.5 g/dL (6.0-8.3); Sodium 138 mmol/L (136-145)
[2023-02-10 16:29] LABS: Anisocytosis SLIGHT = 6-15 cells HPF (0-5); Band 3 % (5-11); CellaVision Operator ID LAB.KB; Lymphocytes 11 % (21-51); Macrocytosis SLIGHT = 6-15 cells HPF (0-5); Monocytes 6 % (0-10); Myelocyte 1 % (0-0); Neutrophil 78 % (42-75); Nucleated RBC (Manual Ct) 3 % (0); Platelet Adequacy Comment Platelets Normal; Polychromasia SLIGHT = 2-3 cells HPF (0-2); Smudge Cells 11.1 %; Total Cell Count 99
[2023-02-10] MEDS ORDERED: Potassium Chloride 20 MEQ TAB ONE (17:17)
[2023-02-10] MEDS ORDERED: CALCIUM GLUC 1 GM/NS 50 ML BAG ONE ×2 (19:58→20:26)
[2023-02-10] MEDS ORDERED: Potassium Chloride 20 MEQ/100 ML PREMIX BAG ONE (19:59)
[2023-02-10] MEDS ORDERED: Potassium Chloride 10 MEQ in Premix Bag 1 BAG IVPB SCH (20:15)
[2023-02-10] MEDS ORDERED: Acetaminophen 500 MG TAB ONE (20:32)
[2023-02-10] MEDS ORDERED: Ketorolac Tromethamine 30 MG/ML VIAL ONE (20:32)
== END 2023-02-10 22:23 | disposition home or self-care (01) ==
LOC: ERS 15:03
DX: E87.6 Hypokalemia (principal); E83.51 Hypocalcemia; R22.43 Localized swelling, mass and lump, lower limb, bilateral; I10 Essential (primary) hypertension; E03.9 Hypothyroidism, unspecified; Z87.891 Personal history of nicotine dependence
CPT/HCPCS: 36415; 71045; 80053; 83880; 84484; 84703; 85025; 85379; 93005; 93970; 96361; 96365; 96367; 96375; J0613; J1885; J3480

== ENCOUNTER 2023-02-18 19:08 | Emergency (ER) | payer OTHER ==
[2023-02-18] MEDS ORDERED: Metoclopramide HCl 10 MG TAB ONE (19:48)
== END 2023-02-18 20:36 | disposition home or self-care (01) ==
LOC: ERS 19:08
DX: S00.93XA Contusion of unspecified part of head, initial encounter (principal); E03.9 Hypothyroidism, unspecified; I10 Essential (primary) hypertension; W07.XXXA Fall from chair, initial encounter; Z87.891 Personal history of nicotine dependence; Z79.01 Long term (current) use of anticoagulants
CPT/HCPCS: 70450

== ENCOUNTER 2023-08-16 13:52 | Outpatient (CLI) | payer OTHER | END 2023-08-16 13:53 | disposition home or self-care (01) | LOC: BICCT 13:52 | PROVIDERS: ATTEND Neurological Surgery | DX: M54.50 Low back pain, unspecified (principal); M47.816 Spondylosis without myelopathy or radiculopathy, lumbar region | CPT/HCPCS: 72131 ==

== ENCOUNTER 2024-07-15 13:47 | Emergency (ER) | payer SELFPAY ==
[2024-07-15 15:23] LABS: #Basophils 0.04 10x3/uL (0.0-0.2); %Basophils 0.5 % (0.0-1.0); %Eosinophils 3.2 % (0.0-10.0); %Lymphocytes 33.5 % (21.0-51.0); %Monocytes 6.6 % (0.0-10.0); %Neutrophils 56.1 % (42.0-75.0); Hematocrit 37.9 % (36.0-47.0); Hemoglobin 12.3 g/dL (12.0-16.0); Mean Corpuscular HGB CONC 32.5 g/dL (32.0-36.0); Mean Corpuscular Hemoglobin 29.2 pg (27.0-31.0); Mean Platelet Volume 10.8 fL (7.4-10.4); Platelet Count 228 10x3/uL (130-400); RBC Distribution Width 16.4 % (11.5-14.5); Red Blood Cell (RBC) Count 4.21 mill/uL (4.20-5.40)
[2024-07-15 15:34] LABS: BHCG - Serum Negative (NEGATIVE); Pregs Control Background? CLEAR/WHITE (CLR/WHITE); Pregs Control Bar Appear? YES (CONTROL BAR)
[2024-07-15 15:47] LABS: ALT (SGPT) 50 U/L (8-55); AST (SGOT) 30 U/L (5-34); Alkaline Phosphatase 82 U/L (40-110); Anion Gap 13 mmol/L (10-20); BUN (Urea Nitrogen) 12 mg/dL (7.0-18.7); Bilirubin, Total 0.3 mg/dL (0.2-1.2); Calc. Creatinine Clearance 0 mL/min (70-130); Calcium 8.8 mg/dL (7.8-10.44); Carbon Dioxide 25 mmol/L (22-29); Chloride 108 mmol/L (98-107); Estimated GFR 120; Globulin 3.1 g/dL (2.4-3.5); Glucose 80 mg/dL (70-105); Potassium 3.6 mmol/L (3.5-5.1); Protein, Total 7.1 g/dL (6.0-8.3); Sodium 142 mmol/L (136-145)
[2024-07-15] MEDS ORDERED: Ketorolac Tromethamine 30 MG (1 mL) VIAL ONE (17:58)
[2024-07-15] MEDS ORDERED: Cyclobenzaprine 10 MG TAB ONE (17:58)
[2024-07-15] MEDS ORDERED: Ondansetron ODT 4 MG TAB ONE (17:59)
[2024-07-15] MEDS ORDERED: HYDROcodone/Acetaminophen 5/325 mg Tablet ONE (17:59)
== END 2024-07-15 18:53 | disposition home or self-care (01) ==
LOC: ERS 13:47
DX: S00.93XA Contusion of unspecified part of head, initial encounter (principal); M54.50 Low back pain, unspecified; M54.2 Cervicalgia; I10 Essential (primary) hypertension; E03.9 Hypothyroidism, unspecified; Z79.890 Hormone replacement therapy; Z79.899 Other long term (current) drug therapy; W10.9XXA Fall (on) (from) unspecified stairs and steps, initial encounter; Y93.89 Activity, other specified; Y92.69 Other specified industrial and construction area as the place of occurrence of the external cause
CPT/HCPCS: 36415; 70450; 72125; 72128; 72131; 80053; 84703; 85025; 96372; J1885; Q0162

== ENCOUNTER 2025-06-22 15:11 | Emergency (ER) | payer OTHER, SELFPAY ==
[~2025-06-22 15:11] MED LIST changes: -Iopamidol-370 76% 500 ML 1 ML ONE; +Iopamidol-370 76% 500 ML MDV (1 ML CHARGE) ONE
[2025-06-22] MEDS ORDERED: Acetaminophen 500 MG TAB ONE ×2 (16:16→16:19)
[2025-06-22 16:59] LABS: #Basophils 0.03 10x3/uL (0.0-0.2); #Eosinophils 0.59 10x3/uL (0.0-0.7); #Monocytes 1.01 10x3/uL (0.11-0.59); #Neutrophils 3.26 10x3/uL (1.40-6.50); %Basophils 0.5 % (0.0-1.0); %Eosinophils 9.0 % (0.0-10.0); %Lymphocytes 25.2 % (21.0-51.0); %Monocytes 15.4 % (0.0-10.0); %Neutrophils 49.6 % (42.0-75.0); Hematocrit 32.8 % (36.0-47.0); Hemoglobin 9.8 g/dL (12.0-16.0); Mean Corpuscular Hemoglobin 24.0 pg (27.0-31.0); Mean Corpuscular Volume 80.2 fL (78.0-98.0); Platelet Count 234 10x3/uL (130-400); Red Blood Cell (RBC) Count 4.09 mill/uL (4.20-5.40); White Blood Cell (WBC) Count 6.56 10x3/uL (4.8-10.8)
[2025-06-22 17:10] LABS: BHCG - Serum Negative (NEGATIVE); Pregs Control Background? CLEAR/WHITE (CLR/WHITE); Pregs Control Bar Appear? YES (CONTROL BAR)
[2025-06-22 17:15] LABS: ALT (SGPT) 16 U/L (Less than 34); AST (SGOT) 30 U/L (11-34); Albumin 3.5 g/dL (3.1-4.5); Alkaline Phosphatase 84 U/L (40-110); Anion Gap 18 mmol/L (10-20); BUN (Urea Nitrogen) 8 mg/dL (7.0-18.7); Bilirubin, Total 0.3 mg/dL (0.3-1.2); Calc. Creatinine Clearance 0 mL/min (70-130); Calcium 8.7 mg/dL (7.8-10.44); Carbon Dioxide 20 mmol/L (22-29); Chloride 104 mmol/L (98-107); Globulin 3.5 g/dL (2.4-3.5); Glucose 89 mg/dL (70-105); Potassium 3.6 mmol/L (3.5-5.1); Sodium 138 mmol/L (136-145)
[2025-06-22 17:58] LABS: INR-International Normal Ratio 1.2; PTT 29.2 sec (22.9-36.1); Prothrombin Time 15.1 sec (12.0-14.7)
[2025-06-22] MEDS ORDERED: diphenhydrAMINE 50 MG/ML VIAL ONE (20:07)
[2025-06-22] MEDS ORDERED: Prochlorperazine 10 MG/2 ML VIAL ONE (20:07)
== END 2025-06-22 20:45 | disposition home or self-care (01) ==
LOC: ERS 15:11
DX: D50.9 Iron deficiency anemia, unspecified (principal); J32.9 Chronic sinusitis, unspecified; R55 Syncope and collapse; I10 Essential (primary) hypertension; E03.9 Hypothyroidism, unspecified; Z79.890 Hormone replacement therapy; W19.XXXA Unspecified fall, initial encounter
CPT/HCPCS: 70496; 70498; 80053; 83540; 84484; 84703; 85025; 85610; 85730; 93005; 96361; 96365; 96375; J0780; J1200; J2270; Q9967